=== PATIENT | male | born 1930 | race Caucasian/White ===

== ENCOUNTER 2017-03-15 16:00 | Inpatient (IN) | payer MEDICARE, BC ==
[2017-03-15] MEDS ORDERED: ONDANSETRON 4 MG/2 ML VIAL IVP PRN (16:56)
[2017-03-15] MEDS ORDERED: ACETAMINOPHEN TAB 325 MG TAB PO PRN (16:56)
[2017-03-15] MEDS ORDERED: MORPHINE SULFATE 5 MG/ML SYRINGE IV PRN (16:56)
[2017-03-15] MEDS ORDERED: NALOXONE 0.4 MG/ML 1 ML VIAL IV PRN (16:56)
[2017-03-15] MEDS ORDERED: NITROGLYCERIN SL TABS 0.4 MG TAB SUBLINGUAL PRN (16:58)
[2017-03-15] MEDS ORDERED: ALPRAZolam 0.5 MG TAB PO PRN (16:58)
--- NOTE | 2017-03-15 17:13 | ED ---
General Adult HPI - General Chief complaint: Chest Pain Stated complaint: CHEST PAIN Time Seen by Provider: 03/15/17 16:09 Source: patient, EMS, RN notes reviewed, old records reviewed Mode of arrival: EMS Limitations: no limitations - History of Present Illness Initial comments: 86-year-old male presenting as a transfer from outside emergency Department with chief complaint of chest pain. Patient has history of CAD, status post stenting on 02/13/2017. He has been compliant with his medications. Patient has been chest pain-free throughout EMS transport and while in the emergency department. Denies dyspnea. Denies fever or chills. Denies cough or shortness of breath. Denies abdominal pain nausea vomiting. Patient states his chest pain began approximately one hour prior to initial presentation. He received aspirin, chest pain is resolved. It was dull substernal chest pain. No radiation. No diaphoresis. - Related Data Home Medications Medication Instructions Recorded Confirmed Nitroglycerin Sl Tabs [Nitrostat] 0.4 mg SUBLINGUAL Q5M PRN 12/14/13 03/15/17 Aspirin EC [Ecotrin Low Dose] 81 mg PO DAILY 02/12/17 03/15/17 Isosorbide Mononitrate [Imdur] 30 mg PO DAILY 02/12/17 03/15/17 ALPRAZolam [Xanax] 0.5 mg PO BID PRN 03/15/17 03/15/17 Atorvastatin [Lipitor] 40 mg PO HS 03/15/17 03/15/17 Magic Mouthwash 1 - 2 tsp PO BID PRN 03/15/17 Prasugrel [Effient] 10 mg PO DAILY 03/15/17 03/15/17 amLODIPine [Norvasc] 5 mg PO DAILY 03/15/17 03/15/17 Previous Rx's Medication Instructions Recorded Metoprolol Tartrate [Lopressor] 25 mg PO DAILY #30 tab 02/14/17 Ticagrelor [Brilinta] 90 mg PO BID #60 tab 02/14/17 Allergies Allergy/AdvReac Type Severity Reaction Status Date / Time clopidogrel [From Plavix] Allergy Unknown Verified 03/15/17 16:44 procaine [Procaine] Allergy Rash/Hives Verified 03/15/17 16:44 procaine HCl [From Novocain] Allergy Rash/Hives Verified 03/15/17 16:44 Review of Systems ROS Statement: Those systems with pertinent positive or pertinent negative responses have been documented in the HPI. ROS Other: All systems not noted in ROS Statement are negative. Past Medical History Past Medical History: Coronary Artery Disease (CAD), Chest Pain / Angina, Heart Failure, Hyperlipidemia, Hypertension, Myocardial Infarction ([place]), Osteoarthritis (OA) Additional Past Medical History / Comment(s): CHF, ANGINA, Stents x 4, DJD, antral ulcer Last Myocardial Infarction Date:: 12/14/13 History of Any Multi-Drug Resistant Organisms: None Reported Past Surgical History: Heart Catheterization With Stent, Hernia Repair, Orthopedic Surgery Additional Past Surgical History / Comment(s): STENTS X4, Left hand surgery, jared cataract, EGD Past Anesthesia/Blood Transfusion Reactions: No Reported Reaction Date of Last Stent Placement:: 12/14/2013 Past Psychological History: Anxiety Smoking Status: Former smoker Past Alcohol Use History: None Reported Past Drug Use History: None Reported - Past Family History Mother History Unknown: Yes Father Additional Family Medical History / Comment(s): typhoid fever; otherwise unknown hx of father or mother; father was in concentration camp in [facility]. General Exam Limitations: no limitations General appearance: alert, in no apparent distress Head exam: Present: atraumatic, normocephalic Eye exam: Present: normal appearance, PERRL ENT exam: Present: normal exam Neck exam: Present: normal inspection. Absent: meningismus Respiratory exam: Present: normal lung sounds bilaterally. Absent: respiratory distress, wheezes Cardiovascular Exam: Present: regular rate, normal rhythm GI/Abdominal exam: Present: soft. Absent: distended, tenderness Extremities exam: Present: normal inspection, normal capillary refill. Absent: pedal edema Back exam: Present: normal inspection. Absent: full ROM, tenderness Neurological exam: Present: alert, oriented X3 Psychiatric exam: Present: normal affect, normal mood Skin exam: Present: warm, dry, intact. Absent: cyanosis, diaphoretic Course Vital Signs 03/15/17 16:10 Temperature 98.1 F Pulse Rate 57 L Respiratory 16 Rate Blood Pressure 156/85 O2 Sat by Pulse 98 Oximetry EKG Findings - EKG Comments: EKG Findings:: EKG shows sinus rhythm with first-degree AV block and occasional PVC left axis deviation, rate of 69, AK interval 232, QRS duration 112, QTC 447 , there is T-wave inversion in the inferior leads no ST segment depression or ST segment elevation. Medical Decision Making - Medical Decision Making 86-year-old male with history of CAD presents to emergency department as transfer from outside hospital for evaluation of chest pain. Previous ER physician did discuss the case with cardiology. Patient was given an aspirin, no no heparin at this time. Patient will be placed in observation for serial cardiac enzymes and cardiology consult. Laboratory studies obtained at its outside emergency Department, glucose 95, creatinine 1.3, sodium 140, potassium 4, troponin is negative, white blood cell count 6.1, hemoglobin 13.7. Disposition Clinical Impression: Chest pain Disposition: ADMITTED IP TO THIS HOSP Condition: Stable Referrals: Sundeep Hawley MD [Primary Care Provider] - 1-2 days Decision to Admit Reason: Admit from EC Decision Date: 03/15/17 Decision Time: 17:12
[2017-03-15 18:52] LABS: Creatine Kinase MB 0.6 ng/mL (0.0-2.4); Troponin I 0.03 ng/mL (0.000-0.034)
[2017-03-15] MEDS: ATORVASTATIN 40 MG TAB PO SCH (20:00)
[2017-03-15] MEDS: TICAGRELOR 90 MG TAB PO SCH (20:00)
[2017-03-15] MEDS ORDERED: HEPARIN SODIUM,PORCINE 5,000 UNIT/ML 1 ML VIAL IV PRN (22:29)
[2017-03-15] MEDS ORDERED: HEPARIN SODIUM,PORCINE 5,000 UNIT/ML 1 ML VIAL IV ONE (22:29)
[2017-03-15] MEDS: HEPARIN SOD,PORK IN 0.45% NACL 25,000 UNIT in 0.45% NACL 1 500ML.BAG IV SCH (23:18)
[2017-03-15 23:22] LABS: INR 1.1 (<1.2); Partial Thromboplastin Time 23.9 sec (22.0-30.0); Prothrombin Time 10.4 sec (9.0-12.0)
[2017-03-15 23:30] LABS: Creatine Kinase MB 0.6 ng/mL (0.0-2.4); Troponin I 0.025 ng/mL (0.000-0.034)
[2017-03-15] MEDS ORDERED: HYDROcodone/APAP 5-325MG 1 EACH TAB PO PRN (23:35)
[2017-03-16 05:42] LABS: Basophils % (A) 1 %; Eosinophils # (A) 0.6 k/uL (0-0.7); Eosinophils % (A) 10 %; HGB 14.9 gm/dL (13.0-17.5); Lymphocytes # (A) 0.9 k/uL (1.0-4.8); Lymphocytes % (A) 16 %; MCH 29.2 pg (25.0-35.0); MCHC 32.5 g/dL (31.0-37.0); Mean Platelet Volume 7.2; Monocytes # (A) 0.5 k/uL (0-1.0); Monocytes % (A) 8 %; Neutrophils # (A) 3.4 k/uL (1.3-7.7); Neutrophils % (A) 60 %; Platelet Count 190 k/uL (150-450); RBC 5.11 m/uL (4.30-5.90); RDW 13.4 % (11.5-15.5); WBC 5.6 k/uL (3.8-10.6)
[2017-03-16 05:57] LABS: ALT 31 U/L (21-72); AST 18 U/L (17-59); Albumin 3.2 g/dL (3.5-5.0); Alkaline Phosphatase 111 U/L (38-126); Anion Gap 9 mmol/L; Blood Urea Nitrogen 15 mg/dL (9-20); Calcium 9.1 mg/dL (8.4-10.2); Carbon Dioxide 27 mmol/L (22-30); Chloride 106 mmol/L (98-107); Glucose 94 mg/dL (74-99); Magnesium 2.2 mg/dL (1.6-2.3); Potassium 4.5 mmol/L (3.5-5.1); Sodium 142 mmol/L (137-145); Total Bilirubin 0.7 mg/dL (0.2-1.3); Total Protein 5.8 g/dL (6.3-8.2)
[2017-03-16 06:45] LABS: Basophils # (M) 0.11 k/uL (0-0.2); Eosinophils # (M) 0.45 k/uL (0-0.7); Monocytes # (M) 0.78 k/uL (0-1.0); Neutrophils # (M) 3.36 k/uL (1.3-7.7); Neutrophils % (M) 60 %; Nucleated Red Blood Cells 0 /100 WBC (0-0); Total Cells Counted 100
[2017-03-16] MEDS ORDERED: METOPROLOL TARTRATE 25 MG TAB PO SCH (09:00)
[2017-03-16] MEDS ORDERED: PRASUGREL 10 MG TAB PO SCH (09:00)
--- NOTE | 2017-03-16 09:37 | HP ---
HISTORY AND PHYSICAL DATE OF SERVICE: 03/15/2017 CHIEF COMPLAINT: Chest pain. HISTORY OF PRESENT ILLNESS: This 86-year-old gentleman with a past medical history of multiple medical problems including history of coronary artery disease and CHF, hypertension, hyperlipidemia, history of multiple stents, being followed by Dr. Hawley in the outpatient setting, presented to outside emergency room and subsequently patient was transferred to [facility]. The patient complaining of chest pain she felt in the anterior part of the chest. There is no history of radiation. No association with any aggravating or relieving factors. The pain started about 1 hour prior to the presentation at the primary hospital and the patient admitted for further evaluation and treatment. Patient had features of non ST-segment elevation myocardial infarction recently. Troponin is 0.03 and an EKG done today showed some ST-T changes and PVCs. There is no history of fever, rigors. No history of headache, loss of consciousness, seizures. First degree AV block was noted. PAST MEDICAL HISTORY: History of CAD, stent, history of CHF, hypertension, hyperlipidemia, myocardial infarction, angina. MEDICATIONS: 1. Prior to admission include Imdur 30 mg p.o. daily. 2. Brilinta 90 mg p.o. b.i.d. 3. Nitrostat 0.4 mg p.r.n. 4. Lopressor 25 mg p.o. daily. 5. Ecotrin 81 mg p.o. 6. Norvasc 5 mg p.o. daily. 7. Lipitor 40 mg q.h.s. 8. Xanax 0.5 mg b.i.d. p.r.n. 9. Magic mouthwash. ALLERGIES: PLAVIX, PROCAINE, AND NOVOCAIN. FAMILY HISTORY: History of typhoid fever and apparently the father was in concentration camp in [facility]. SOCIAL HISTORY: Previous history of smoking. No alcohol intake. REVIEW OF SYSTEMS: ENT: Diminished hearing and vision. CARDIOVASCULAR: As mentioned earlier. RESPIRATORY: As mentioned earlier. GI: No nausea. : No dysuria. NERVOUS SYSTEM: No numbness, weakness. ALLERGY/IMMUNOLOGY: No asthma. MUSCULOSKELETAL: As mentioned earlier. HEMATOLOGY: No history of anemia. ENDOCRINE: No history of diabetes, hypothyroidism. CONSTITUTIONAL: As mentioned earlier. DERMATOLOGY: Negative. RHEUMATOLOGY Negative. PSYCHIATRY: As mentioned earlier. PHYSICAL EXAM: Alert, oriented x3. Pulse 85, blood pressure 119/85, respiration 18, temp 97.6, pulse ox 98% room air. HEENT: Conjunctivae normal. Oral mucosa moist. Neck is no jugular venous distention. No carotid bruit. No lymph node enlargement. CARDIOVASCULAR: S1, S2. No S3, no S4. RESPIRATORY: Breath sounds diminished in the bases. A few rhonchi, no crackles. ABDOMEN: Soft, nontender. No mass palpable. LEGS: No edema, no swelling. NERVOUS SYSTEM: Higher functions as mentioned earlier. Moves all four limbs. No focal motor sensory deficits LYMPHATIC: No lymphadenopathy in the neck, axillae, groin. SKIN: No ulcer, rash or bleeding. LAB STUDIES: EKG reviewed. Otherwise is 42. Other labs are noted. ASSESSMENT: 1. Chest pain possible unstable angina rule out myocardial function. 2. History of recent myocardial infarction. 3. History of CAD, multiple stents. 4. Hypertension. 5. Hyperlipidemia. 6. History of degenerative joint disease. 7. History of congestive heart failure. 8. History of antral ulcer. 9. History of cataracts. 10.History of anxiety. RECOMMENDATIONS AND DISCUSSION: In this 86-year-old gentleman who presented with multiple complex medical issues , will monitor the patient closely. Continue the current medications and unstable angina protocol, IV heparin. Repeat troponin. Cardiology consultation. Resume the home medication. Antiplatelet and beta blockers. Will follow the patient closely. Otherwise repeat labs will be ordered. Prognosis guarded because of multiple complex medical issues. Further recommendations to follow. Copy of dictation forwarded to Dr. Hawley who is the primary physician. MMKARENL / STARN: [id number] / [facility]
[2017-03-16 09:57] LABS: Troponin I 0.03 ng/mL (0.000-0.034)
[2017-03-16 10:00] LABS: Creatine Kinase MB 0.9 ng/mL (0.0-2.4)
[2017-03-16 10:13] VITALS: BMI 30.9
--- NOTE | 2017-03-16 12:29 | P.CRDCN ---
History of Present Illness Consult date: 03/16/17 Requesting physician: Lary Wong Consult reason: chest pain Chief complaint: Chest pain History of present illness: This is an 86-year-old gentleman who follows regularly with Dr. Iglesia Man in the office. He has a past medical history significant for coronary artery disease, patient is known to have a total occlusion of the circumflex, he has also underwent multiple interventions of the RCA from 2000 onwards. The most recent intervention was performed in January 2017 at which time patient underwent stenting again of the totally occluded RCA. He should also has known history of hypertension, hyperlipidemia. He states that he has a visiting nurse that comes to the house, he was told by her if his blood pressure ever dropped low that he should go to the hospital. He states he presented to [facility] because of low blood pressure of 116/70. After arrival there he was told that the patient would be transferred to [facility] for further evaluation. Patient states he did not have any overt chest discomfort, but does state that he gets chest discomfort in the left side of his chest off and on, maybe twice or 3 times since his most recent PCI. He does state that he occasionally feels his heart racing fast, overall breathing has been stable. EKG performed at [facility] shows a sinus bradycardia with a first- degree AV block and ST-T wave changes noted in the inferior lateral leads. Subsequent EKG performed on arrival here shows normal sinus rhythm with first- degree AV block cyst and ST-T wave changes in the inferior leads with resolution of changes in the lateral leads. Inferior changes were also noted on prior EKGs in January. He is noted to have occasional PVCs on the monitor, upon review of his rhythm strips, patient was noted to have a 23 run of nonsustained ventricular tachycardia. Echocardiogram with Doppler study performed in January revealed an ejection fraction of 40-45%. Laboratory data at [facility] was reviewed, sodium 140, potassium 4.0, chloride 108, CO2 25. BUN 17, creatinine 1.3. Blood cell count 6.1, hemoglobin 13.7, hematocrit 41, platelet count 170. Initial troponin performed at [facility] was 0.2. White blood cell count here 5.6, hemoglobin 14.9, platelet count 190. Sodium 142, potassium 4.5, BUN 15, creatinine 1.2. Magnesium 2.2. Troponins 0.030, 0.025, 0.030. The time of my examination this morning, patient denies having any chest or, breathing is stable, denies any palpitations. Past Medical History Past Medical History: Coronary Artery Disease (CAD), Chest Pain / Angina, Heart Failure, Hyperlipidemia, Hypertension, Myocardial Infarction ([place]), Osteoarthritis (OA) Additional Past Medical History / Comment(s): CHF, ANGINA, Stents x 4, DJD, antral ulcer Last Myocardial Infarction Date:: 12/14/13 History of Any Multi-Drug Resistant Organisms: None Reported Past Surgical History: Heart Catheterization With Stent, Hernia Repair, Orthopedic Surgery Additional Past Surgical History / Comment(s): STENTS X4, Left hand surgery, jared cataract, EGD Past Anesthesia/Blood Transfusion Reactions: No Reported Reaction Date of Last Stent Placement:: 12/14/2013 Smoking Status: Former smoker - Past Family History Mother History Unknown: Yes Father Additional Family Medical History / Comment(s): typhoid fever; otherwise unknown hx of father or mother; father was in concentration camp in [facility]. Medications and Allergies Home Medications Medication Instructions Recorded Confirmed Type Nitroglycerin Sl Tabs [Nitrostat] 0.4 mg SUBLINGUAL Q5M PRN 12/14/13 03/15/17 History Aspirin EC [Ecotrin Low Dose] 81 mg PO DAILY 02/12/17 03/15/17 History Isosorbide Mononitrate [Imdur] 30 mg PO DAILY 02/12/17 03/15/17 History Metoprolol Tartrate [Lopressor] 25 mg PO DAILY #30 tab 02/14/17 03/15/17 Rx Ticagrelor [Brilinta] 90 mg PO BID #60 tab 02/14/17 03/15/17 Rx ALPRAZolam [Xanax] 0.5 mg PO BID PRN 03/15/17 03/15/17 History Atorvastatin [Lipitor] 40 mg PO HS 03/15/17 03/15/17 History Magic Mouthwash 1 - 2 tsp PO BID PRN 03/15/17 History amLODIPine [Norvasc] 5 mg PO DAILY 03/15/17 03/15/17 History Allergies Allergy/AdvReac Type Severity Reaction Status Date / Time clopidogrel [From Plavix] Allergy Unknown Verified 03/15/17 16:44 procaine [Procaine] Allergy Rash/Hives Verified 03/15/17 16:44 procaine HCl [From Novocain] Allergy Rash/Hives Verified 03/15/17 16:44 Physical Exam Vitals: Vital Signs Temp Pulse Pulse Pulse Resp BP BP 03/16/17 08:00 97.5 F L 70 16 121/68 03/16/17 03:37 18 03/16/17 03:36 97.6 F 68 18 171/75 03/15/17 23:52 18 03/15/17 23:28 97.6 F 85 18 195/85 03/15/17 20:00 97.5 F L 73 16 166/73 03/15/17 18:15 97.6 F 89 18 158/72 03/15/17 17:53 69 16 154/72 03/15/17 17:09 66 16 146/66 03/15/17 16:10 98.1 F 57 L 16 156/85 Pulse Ox 03/16/17 08:00 95 03/16/17 03:37 03/16/17 03:36 97 03/15/17 23:52 03/15/17 23:28 92 L 03/15/17 20:00 96 03/15/17 18:15 96 03/15/17 17:53 97 03/15/17 17:09 99 03/15/17 16:10 98 Intake and Output 03/15/17 03/16/17 03/16/17 22:59 06:59 14:59 Intake Total 240 145.028 Balance 240 145.028 Intake: Intake, IV Titration 145.028 Amount Heparin Sod,Pork in 0.45% 145.028 NaCl 25,000 unit In 0.45 % NaCl 1 500ml.bag @ 11. 55 UNITS/KG/HR 20.05 mls/ hr IV .Q24H [facility] Rx#: [id number] Oral 240 Other: Voiding Method Toilet # Voids 1 Weight 86.8 kg 86.8 kg Patient Weight 03/17/17 06:59 Weight 86.8 kg PHYSICAL EXAMINATION: HEENT: Head is atraumatic, normocephalic. Pupils equal, round. Neck is supple. There is no elevated jugular venous pressure. HEART EXAMINATION: Heart S1, S2 systolic ejection murmur heard . No murmur or gallop heard. CHEST EXAMINATION: Lungs are clear to auscultation and precussion. No chest wall tenderness is noted on palpation or with deep breathing. ABDOMEN: Soft, nontender. Bowel sounds are heard. No organomegaly noted. EXTREMITIES: 2+ peripheral pulses with no evidence of peripheral edema and no calf tenderness noted. NEUROLOGIC patient is awake, alert and oriented -3. . Results 03/16/17 05:22 03/16/17 05:22 Cardiac Enzymes 03/15/17 03/15/17 03/16/17 Range/Units 18:02 22:43 05:22 AST 18 (17-59) U/L CK-MB (CK-2) 0.6 0.6 (0.0-2.4) ng/mL Troponin I 0.030 0.025 (0.000-0.034) ng/mL 03/16/17 Range/Units 05:22 AST (17-59) U/L CK-MB (CK-2) 0.9 (0.0-2.4) ng/mL Troponin I 0.030 (0.000-0.034) ng/mL Coagulation 03/15/17 03/16/17 Range/Units 22:43 05:22 PT 10.4 (9.0-12.0) sec APTT 23.9 43.1 H (22.0-30.0) sec CBC 03/16/17 Range/Units 05:22 WBC 5.6 (3.8-10.6) k/uL RBC 5.11 (4.30-5.90) m/uL Hgb 14.9 (13.0-17.5) gm/dL Hct 46.0 (39.0-53.0) % Plt Count 190 (150-450) k/uL Comprehensive Metabolic Panel 03/16/17 Range/Units 05:22 Sodium 142 (137-145) mmol/L Potassium 4.5 (3.5-5.1) mmol/L Chloride 106 (98-107) mmol/L Carbon Dioxide 27 (22-30) mmol/L BUN 15 (9-20) mg/dL Creatinine 1.20 (0.66-1.25) mg/dL Glucose 94 (74-99) mg/dL Calcium 9.1 (8.4-10.2) mg/dL AST 18 (17-59) U/L ALT 31 (21-72) U/L Alkaline Phosphatase 111 (38-126) U/L Total Protein 5.8 L (6.3-8.2) g/dL Albumin 3.2 L (3.5-5.0) g/dL Current Medications Generic Name Dose Route Start Last Admin Trade Name Freq PRN Reason Stop Dose Admin Acetaminophen 650 mg 03/15/17 16:56 Tylenol Tab PO Q6HR PRN Mild Pain or Fever > 100.5 Hydrocodone Bitart/Acetaminophen 1 each 03/15/17 23:35 [place] 5-325 PO Q6HR PRN Pain Alprazolam 0.5 mg 03/15/17 16:58 03/15/17 23:29 Xanax PO 0.5 mg BID PRN Administration Anxiety Amlodipine Besylate 5 mg 03/16/17 09:00 Norvasc PO DAILY [facility] Aspirin 81 mg 03/16/17 09:00 Aspirin PO DAILY [facility] Atorvastatin Calcium 40 mg 03/15/17 21:00 03/15/17 20:00 Lipitor PO 40 mg HS [facility] Administration Heparin Sodium (Porcine) 0 unit 03/15/17 22:29 Heparin IV PER PROTOCOL PRN Low PTT Protocol Heparin Sodium/Sodium Chloride 500 mls @ 20.05 mls/hr 03/15/17 22:30 06:32 25,000 unit/ Sodium Chloride IV 13.55 units/kg/hr .Q24H [facility] 23.52 mls/hr Protocol Titration 11.55 UNITS/KG/HR Isosorbide Mononitrate 30 mg 03/16/17 09:00 Imdur PO DAILY [facility] Melatonin 3 mg 03/16/17 21:00 Melatonin PO HS [facility] Metoprolol Tartrate 25 mg 03/16/17 09:00 Lopressor PO DAILY [facility] Morphine Sulfate 4 mg 03/15/17 16:56 Morphine Sulfate IV Q4HR PRN Severe Pain Naloxone HCl 0.2 mg 03/15/17 16:56 Narcan IV Q2M PRN Opioid Reversal Nitroglycerin 0.4 mg 03/15/17 16:58 Nitrostat SUBLINGUAL Q5M PRN Chest Pain Ondansetron HCl 4 mg 03/15/17 16:56 Zofran IVP Q8HR PRN Nausea And Vomiting Ticagrelor 90 mg 03/15/17 21:00 03/15/17 20:00 Brilinta PO 90 mg BID АНДРЕЙ Administration Intake and Output 03/15/17 03/16/17 03/16/17 22:59 06:59 14:59 Intake Total 240 145.028 Balance 240 145.028 Intake: Intake, IV Titration 145.028 Amount Heparin Sod,Pork in 0.45% 145.028 NaCl 25,000 unit In 0.45 % NaCl 1 500ml.bag @ 11. 55 UNITS/KG/HR 20.05 mls/ hr IV .Q24H [facility] Rx#: [id number] Oral 240 Other: Voiding Method Toilet # Voids 1 Weight 86.8 kg 86.8 kg Patient Weight 03/17/17 06:59 Weight 86.8 kg 03/16/17 05:22 03/16/17 05:22 EKG Interpretations (text) EKG shows normal sinus rhythm with ST-T wave changes in the inferior lateral leads. Assessment and Plan Plan: Assessment and Plan #1 intermittent chest discomfort, patient actually states that he did not have any chest discomfort prior to presenting [facility], he states he went to the hospital because he thought his blood pressure of 116/70 was too low. Troponins 0.030, 0.025, 0.030. EKG shows normal sinus rhythm with inferior ST-T wave changes similar to prior. #2 known history of coronary artery disease with known totally occluded circumflex and multiple stent placements to the right coronary artery, most recently in January 2017 #3 hypertension #4 hyperlipidemia #5 run of nonsustained ventricular tachycardia, potassium and magnesium level within normal limits. Plan We will request an echocardiogram with Doppler study be performed. Echo that the patient had performed in January revealed an ejection fraction of 40-45%. Continue aspirin 81 mg daily, Lipitor 40 mg daily, IV heparin, Imdur 30 mg daily , we will increase metoprolol to 25 mg one tablet by mouth twice a day. Continue Brilinta 90 mg twice a day. Further recommendations to follow. DNP note has been reviewed, I agree with a documented findings and plan of care. Patient was seen and examined.
[2017-03-16] MEDS: TICAGRELOR 90 MG TAB PO SCH ×2 (13:16→20:08)
[2017-03-16] MEDS: amLODIPine 5 MG TAB PO SCH (13:16)
[2017-03-16] MEDS: ISOSORBIDE MONONITRATE ER 30 MG TAB.ER.24H PO SCH (13:16)
[2017-03-16] MEDS: METOPROLOL TARTRATE 25 MG TAB PO SCH ×2 (13:17→20:08)
[2017-03-16] MEDS: ASPIRIN 81 MG PO SCH (13:18)
--- NOTE | 2017-03-16 18:25 | PN ---
PROGRESS NOTE DATE OF SERVICE: 03/16/2017 This is an 86-year-old gentleman admitted with chest pain, possible unstable angina, also had 23 runs of V. tach. No chest pain. No palpitations. No fever. Cardiology is following the patient closely. PHYSICAL EXAM: Alert and oriented x3. Pulse is 68. blood pressure 130/60, respiration 18, temperature 97.4, pulse ox 97% on room air. HEENT: Conjunctivae normal. NECK: No jugular venous distension. CARDIOVASCULAR: S1, S2. RESPIRATORY: Breath sounds diminished at the bases, no rhonchi, no crackles. Abdomen is soft, nontender. LEGS: No edema, no swelling NERVOUS SYSTEM: No focal deficits. LABS: CBC within normal limits and albumin is 3.2. TSH is 2.840. Troponins are noted. ASSESSMENT: 1. Chest pain, possible unstable angina. 2. Nonsustained ventricular tachycardia. 3. History of recent myocardial infarction. 4. History of coronary artery disease, multiple stents. 5. Hypertension. 6. Hyperlipidemia. 7. History of degenerative joint disease. 8. History of congestive heart failure. 9. History of antral ulcer. 10.History of cataracts. 11.History of anxiety. RECOMMENDATION: Continue current management. Continue with the medical treatment. Closely follow with Cardiology. Prognosis guarded because of multiple complex medical issues. Monitor lytes closely. Further recommendations to follow. MMODL / IJN: [id number] /
[2017-03-16] MEDS: MELATONIN 3 MG TABLET PO SCH (20:08)
[2017-03-16] MEDS: ATORVASTATIN 40 MG TAB PO SCH (20:08)
[2017-03-16] MEDS: HEPARIN SOD,PORK IN 0.45% NACL 25,000 UNIT in 0.45% NACL 1 500ML.BAG IV SCH (23:08)
[2017-03-17] MEDS: amLODIPine 5 MG TAB PO SCH (09:37)
[2017-03-17] MEDS: METOPROLOL TARTRATE 25 MG TAB PO SCH ×2 (09:37→21:34)
[2017-03-17] MEDS: TICAGRELOR 90 MG TAB PO SCH ×2 (09:37→21:34)
[2017-03-17] MEDS: ISOSORBIDE MONONITRATE ER 30 MG TAB.ER.24H PO SCH (09:37)
[2017-03-17] MEDS: ASPIRIN 81 MG PO SCH (09:37)
[2017-03-17] MEDS ORDERED: MORPHINE SULFATE 2 MG/ML SYRINGE IV PRN (13:53)
[2017-03-17] MEDS: MELATONIN 3 MG TABLET PO SCH (21:34)
[2017-03-17] MEDS: ATORVASTATIN 40 MG TAB PO SCH (21:34)
[2017-03-18] MEDS ORDERED: AMINOPHYLLINE 500 MG/20 ML VIAL IV PRN (06:00)
[2017-03-18] MEDS ORDERED: REGADENOSON 0.4 MG/5 ML SYRINGE IV ONE (06:00)
[2017-03-18 07:34] LABS: Anion Gap 9 mmol/L; Blood Urea Nitrogen 18 mg/dL (9-20); Calcium 9.4 mg/dL (8.4-10.2); Carbon Dioxide 27 mmol/L (22-30); Chloride 107 mmol/L (98-107); Glucose 108 mg/dL (74-99); Potassium 5.2 mmol/L (3.5-5.1); Sodium 143 mmol/L (137-145)
[2017-03-18 08:04] VITALS: RESP 16
--- NOTE | 2017-03-18 11:20 | NM ---
EXAMINATION TYPE: NM stress lexiscan cardiolite DATE OF EXAM: 03/18/2017 COMPARISON: NONE HISTORY: Precordial chest pain and abnormal EKG. TECHNIQUE: After the intravenous administration of 10.9 mCi Tc 99m Sestamibi - Cardiolite resting SP ECT images acquired 50 minutes post injection. The patient received 0.4mg Lexiscan, 28.1 mCi Tc 99m Sestamibi - Stress images obtained [address] injection FINDINGS: Review of stress and rest SPECT images demonstrates fixed decreased perfusion inferior wall, inferoap ical and inferolateral and lateral andrade felt to reflect remote insult. No evidence for stress-induc ed ischemia at this time. Gated analysis shows hypokinesia inferior wall with an estimated left ventr icular ejection fraction of 44 %. IMPRESSION: No scintigraphic evidence for reversible ischemia.
[2017-03-18] MEDS: ISOSORBIDE MONONITRATE ER 30 MG TAB.ER.24H PO SCH (11:30)
[2017-03-18] MEDS: TICAGRELOR 90 MG TAB PO SCH (11:30)
[2017-03-18] MEDS: amLODIPine 5 MG TAB PO SCH (11:30)
[2017-03-18] MEDS: ASPIRIN 81 MG PO SCH (11:31)
--- NOTE | 2017-03-18 11:34 | EST ---
EXERCISE STRESS DATE OF SERVICE: 03/18/2017 AGE: 86 SEX: Male. HT: 66" WT: 191 pounds PROTOCOL: Lexiscan Cardiolite STAGE: DURATION OF EXERCISE: HEART RATE REST: 71 BLOOD PRESSURE REST: 139/65 MAXIMUM HEART RATE ACHIEVED: 90 MAXIMUM BLOOD PRESSURE: 151/60 85% MPHR: 113 100% MPHR: 133 METS: INDICATIONS: Chest pain. CLINICAL INFORMATION: STRESS DATA: Pretesting physical examination showed a heart rate of 71, pressure is 139/65 mmHg. Baseline EKG showed sinus rhythm. The patient was given 0.4 mg of Lexiscan over 15 seconds per protocol. Max heart rate was 90 beats per minute and maximum pressure was 151/60 mmHg. Clinically the patient did not have any symptoms of chest pain and the EKG did not show any significant changes compared to the baseline. CONCLUSION: 1. Nondiagnostic electrocardiogram stress testing in response to Lexiscan. 2. Please follow up on the Cardiolite portion on a separate report from radiology department. MMODL / IJN: [id number] /
[2017-03-18 11:40] VITALS: BP 137/68; PULSE 52; TEMP 98.1
[2017-03-18] MEDS: METOPROLOL TARTRATE 25 MG TAB PO SCH (12:39)
--- NOTE | 2017-03-18 13:03 | P.PN ---
Subjective Progress Note Date: 03/18/17 Mr. Dhaliwal is an 86-year-old male past medical history significant for coronary artery disease. He is known to have a total occlusion of the circumflex and he most recently underwent PCI of RCA. He follows with Dr. TUCKER Man in the office. He also has a history of hypertension and dyslipidemia. He was being seen today in follow-up for an initial consultation for symptoms of chest discomfort. The chest discomfort was on the left side of his chest off and on baby 23 times since his most recent PCI January. Initial EKG performed at [facility] revealed sinus bradycardia with first-degree AV block and ST to T-wave changes noted in the inferior lateral leads. Subsequent EKG performed on arrival here's shows normal sinus rhythm with first- degree AV block and resolution of the changes in the lateral leads with ongoing inferior changes. He was noted to have a 23 beat run of nonsustained ventricular tachycardia upon admission as well. Echocardiogram and Doppler study performed in January revealed ejection fraction of 40-45%. He has been scheduled for a Lexiscan stress test to rule out progression of coronary artery disease. He denies any further episodes of chest discomfort since admission area and he states his breathing is stable and he has no complaints at this time. Upon admission his metoprolol was increased to 25 mg twice a day secondary to nonsustained VT. However last night he had a 4 second pause noted on telemetry. He was asymptomatic during this time. Potassium this morning 5.2 , creatinine 1.27. Objective - Vital Signs Vital signs: Vital Signs Temp 98.1 F 03/18/17 11:39 Pulse 52 L 03/18/17 11:39 Resp 16 03/18/17 11:39 BP 137/68 03/18/17 11:39 Pulse Ox 98 03/18/17 11:39 Intake & Output 03/17/17 03/18/17 03/18/17 18:59 06:59 18:59 Intake Total 236 Balance 236 Intake: Oral 236 Other: Voiding Method Toilet Toilet Toilet - Exam Blood pressure 137/68 heart rate 52 GENERAL: Well-appearing, well-nourished and in no acute distress. NECK: Supple without JVD or thyromegaly. LUNGS: Faint expiratory wheeze. Respiration equal and unlabored. No rales or rhonchi. HEART: Regular rate and rhythm with systolic ejection murmur, no rubs or gallops. S1 and S2 heard. EXTREMITIES: Normal range of motion, no edema. No clubbing or cyanosis. Peripheral pulses intact and strong. - Labs CBC & Chem 7: 03/16/17 05:22 03/18/17 06:46 Labs: Abnormal Lab Results - Last 24 Hours (Table) 03/18/17 Range/Units 06:46 Potassium 5.2 H (3.5-5.1) mmol/L Creatinine 1.27 H (0.66-1.25) mg/dL Glucose 108 H (74-99) mg/dL Assessment and Plan Assessment: ASSESSMENT 1. Chest pain, atypical 2. Known history of coronary artery disease with chronic total occlusion of circumflex and multiple stent placements to the right coronary artery most recent January 2017 3. Nonsustained ventricular tachycardia 4. Hypertension 5. Dyslipidemia PLAN Decrease beta aftab to to 25 mg daily instead of BID dosing. Lexiscan stress test completed reveals no evidence of reversible cardiac ischemia. Apply event monitor to evaluate for ongoing arrhythmia. Follow-up with Dr. Man in 2 weeks. Nurse Practitioner note has been reviewed, I agree with a documented findings and plan of care. Patient was seen and examined.
--- NOTE | 2017-03-18 14:27 | ECHOF ---
Referral Reason:chest pain MEASUREMENTS -------- HEIGHT: 167.6 cm WEIGHT: 86.6 kg BP: 149/75 IVSd: 1.5 cm (0.6 - 1.1) LVIDd: 4.4 cm (3.9 - 5.3) LVPWd: 1.0 cm (0.6 - 1.1) IVSs: 1.9 cm LVIDs: 3.3 cm LVPWs: 1.6 cm LAESV Index (A-L): 27.46 ml/m Ao Diam: 3.6 cm (2.0 - 3.7) LA Diam: 4.1 cm (2.7 - 3.8) AV Cusp: 0.8 cm (1.5 - 2.6) MV E Silvestre: 0.47 m/s MV DecT: 348 ms MV A Silvestre: 1.04 m/s MV E/A Ratio: 0.45 RAP: 5.00 mmHg RVSP: 11.43 mmHg FINDINGS -------- Sinus rhythm. This was a technically adequate study. The left ventricular size is normal. There is mild concentric left ventricular hypertrophy. Overa ll left ventricular systolic function is moderately impaired with, an EF between 35 - 40 %. Basal i nferior LV wall motion is hypokinetic. Basal inferoseptal LV wall motion is hypokinetic. Basal anteroseptal LV wall motion is hypokinetic. Mid inferior LV wall motion is hypokinetic. Mid inf eroseptal LV wall motion is hypokinetic. Mid anteroseptal LV wall motion is hypokinetic. The right ventricle is normal in size and function. Normal LA size by volume 22+/-6 ml/m2. The right atrium is normal in size. There is moderate aortic valve sclerosis. There is no evidence of aortic regurgitation. There is no evidence of aortic stenosis. The mitral valve leaflets are mildly thickened. Mild mitral regurgitation is present. Trace tricuspid regurgitation present. Right ventricular systolic pressure is normal at < 35 mmHg. There is no evidence of pulmonary hypertension. Trace/mild (physiologic) pulmonic regurgitation. The aortic root size is normal. Normal inferior vena cava with normal inspiratory collapse consistent with estimated right atrial pre ssure of 5 mmHg. The pericardium is normal. There is no pericardial effusion. CONCLUSIONS -------- 1. Sinus rhythm. 2. This was a technically adequate study. 3. The left ventricular size is normal. 4. There is mild concentric left ventricular hypertrophy. 5. Overall left ventricular systolic function is moderately impaired with, an EF between 35 - 40 %. 6. Basal inferior LV wall motion is hypokinetic. 7. Basal inferoseptal LV wall motion is hypokinetic. 8. Basal anteroseptal LV wall motion is hypokinetic. 9. Mid inferior LV wall motion is hypokinetic. 10. Mid inferoseptal LV wall motion is hypokinetic. 11. Mid anteroseptal LV wall motion is hypokinetic. 12. Normal LA size by volume 22+/-6 ml/m2. 13. There is moderate aortic valve sclerosis. 14. The mitral valve leaflets are mildly thickened. 15. Mild mitral regurgitation is present. 16. Trace tricuspid regurgitation present. 17. Right ventricular systolic pressure is normal at < 35 mmHg. 18. There is no evidence of pulmonary hypertension. 19. Trace/mild (physiologic) pulmonic regurgitation. 20. The aortic root size is normal. 21. There is no pericardial effusion. [employer] TECHNICIAN: Antoine Holder RDCS
--- NOTE | 2017-03-18 16:49 | PN ---
PROGRESS NOTE DATE OF SERVICE: 03/17/2017 This 86-year-old gentleman admitted with chest pain, had also nonsustained ventricular tachycardia. No fever. No cough. The patient is awaiting stress test in the morning. EXAM: Alert and oriented times two. Pulse is 52, blood pressure 130/60, respirations 16, temp is 98.2, pulse ox 98% room air. HEENT: Conjunctivae normal. Neck: No jugular venous distention. Cardiovascular: S1, S2 muffled. Respiration: Breath sounds diminished in the bases. No rhonchi. No crackles. Abdomen is soft, nontender. LEGS: No edema. No swelling. Central nervous system: No focal deficits. LABS: Reviewed APTT noted. Otherwise, albumin 3.2. FINAL DIAGNOSES: 1. Chest pain possible unstable angina. 2. Nonsustained ventricular tachycardia. 3. History of recent myocardial infarction. 4. History of coronary artery disease, multiple stents. 5. Hypertension. 6. History of hyperlipidemia. 7. History of degenerative joint disease. 8. History of congestive heart failure. 9. History of antral ulcer. 10.History of cataracts. 11.History of anxiety. RECOMMENDATIONS AND DISCUSSION: Recommend to continue current medications, management. Symptomatic treatment. Otherwise, at this time, I recommend continue the current medications, continue with beta blockers and possible stress test per Cardiology. Guarded prognosis. Further recommendations to follow. MMODL / IJN: [id number] /
[2017-03-19] MEDS ORDERED: METOPROLOL SUCCINATE (ER) 25 MG TAB.ER.24H PO SCH (09:00)
[2017-03-19] MEDS ORDERED: METOPROLOL TARTRATE 25 MG TAB PO SCH (09:00)
--- NOTE | 2017-03-19 09:16 | DS ---
DISCHARGE SUMMARY FINAL DIAGNOSES: 1. Chest pain possible unstable angina. 2. Status post stress test showing fixed defect. 3. Nonsustained ventricular tachycardia. 4. History of recent myocardial infarction. 5. History of coronary artery disease, multiple stents. 6. Hypertension. 7. Hyperlipidemia. 8. History of degenerative joint disease. 9. History of congestive heart failure. 11.History of cataracts. 12.History of anxiety. DISCHARGE DISPOSITION: The patient is being discharged in stable condition with guarded prognosis. HISTORY OF PRESENT ILLNESS: This 86-year-old gentleman with a past medical history of multiple medical problems, admitted with chest pain. Myocardial infarction ruled out. Stress test showed fixed defect. The patient also had multiple runs of ventricular tachycardia and metoprolol single dose was used at this time. The patient improved significantly. Patient being discharged in stable condition with guarded prognosis. Cardiology discussed the case at length with the family. Please refer to Cardiology notes for further information. On exam, vitals are stable. Cardiovascular: S1, S2 is normal. Abdomen is soft. Nervous system: No focal deficits. DISCHARGE ADVICE AND MEDICATIONS: 1. Discharge diet is cardiac. 2. Activity limited until follow up. 3. Follow up with Dr. Hawley in 1-2 days. 4. Follow up with cardiology as advised. MEDICATIONS ARE: 1. Tylenol 650 q.6h p.r.n. 2. Xanax 0.5 p.o. b.i.d. 3. Norvasc 5 mg p.o. daily. 4. Aspirin 81 mg p.o. daily. 5. Lipitor 40 mg q.h.s. 6. Imdur 30 mg p.o. daily. 7. Metoprolol 25 mg p.o. daily. 8. Nitro 0.4 mg sublingual p.r.n. 9. Brilinta 90 mg p.o. b.i.d. MMODL / IJN: [id number] / MTDD
--- NOTE | 2017-03-28 10:56 | EM ---
EVENT MONITOR DATE OF SERVICE: 03/17/2017 INDICATION OF THE STUDY: Palpitation. The baseline rhythm appeared to be sinus mechanism. The patient did experience multiple episodes of ventricular ectopies in the term of premature ventricular contraction as well as short runs of nonsustained VT with wide-complex tachycardia of the longest of 15 beats. Beside that, the patient did experience multiple episodes of ventricular bigeminy and ventricular couplets. Beside that, there was also multiple episodes of single PVCs. No evidence of any supraventricular ectopy is noted. No evidence of any advanced AV block noted. No evidence of any sinus pause or sinus arrest. CONCLUSION: 1. Sinus rhythm as a baseline mechanism. 2. Rare supraventricular ectopic events noted. 3. Frequent ventricular ectopic events noted in the term of PVC, couplets, and nonsustained ventricular tachycardia. 4. No evidence of any advanced AV block. 5. There is no evidence of sinus pause or sinus arrest. MMODL / IJN: [id number] /
== END 2017-03-18 14:17 | disposition home or self-care (01) | DRG 303 ==
LOC: EC 16:00 → 3OBS 16:56 → OBSVTOIN 03-17 13:38
PROVIDERS: ADMIT Hospitalist; ATTEND Hospitalist
DX: I25.110 Atherosclerotic heart disease of native coronary artery with unstable angina pectoris (principal); I47.2 Ventricular tachycardia; I50.9 Heart failure, unspecified; I11.0 Hypertensive heart disease with heart failure; E78.5 Hyperlipidemia, unspecified; F41.9 Anxiety disorder, unspecified; I44.0 Atrioventricular block, first degree; I25.2 Old myocardial infarction; Z79.899 Other long term (current) drug therapy; Z87.11 Personal history of peptic ulcer disease; Z87.891 Personal history of nicotine dependence; Z95.5 Presence of coronary angioplasty implant and graft; Z79.82 Long term (current) use of aspirin; Z88.4 Allergy status to anesthetic agent; Z88.8 Allergy status to other drugs, medicaments and biological substances
CPT/HCPCS: 78452; 80048; 80053; 82550; 82553; 83735; 84443; 84484; 85025; 85610; 85730; 93005; 93017; 93270; 93271; 93306; 99285

== ENCOUNTER 2018-09-03 13:24 | Inpatient (IN) | payer MEDICARE, BC ==
--- NOTE | 2018-09-03 13:47 | ED ---
General Adult HPI - General Chief complaint: Arrhythmia/Palpitations Stated complaint: AFib Time Seen by Provider: 09/03/18 13:25 Source: patient, EMS, RN notes reviewed Mode of arrival: ambulatory Limitations: no limitations - History of Present Illness Initial comments: This is an 87-year-old male who presents emergency department with past medical history significant for coronary artery disease and multiple stent placements. Patient was having chest pain he showed up to [place] and he was found to be in atrial fibrillation which was new for him and his chest pain eventually resolved but because of the new onset A. fib and the chest pain he was transferred to our facility. 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 Patient denies any chest pain currently. Patient denies any shortness of breath currently. Patient denies any recent fever chills or cough. Patient states currently he is asymptomatic. Patient does not know his heart beating irregularly. - Related Data Home Medications Medication Instructions Recorded Confirmed Nitroglycerin Sl Tabs [Nitrostat] 0.4 mg SUBLINGUAL Q5M PRN 12/14/13 09/03/18 Aspirin EC [Ecotrin Low Dose] 81 mg PO DAILY 02/12/17 09/03/18 Isosorbide Mononitrate [Imdur] 30 mg PO DAILY 02/12/17 09/03/18 Atorvastatin [Lipitor] 40 mg PO HS 03/15/17 09/03/18 Gabapentin [Neurontin] 100 mg PO TID 09/03/18 09/03/18 LORazepam [Ativan] 1 mg PO BID 09/03/18 09/03/18 Previous Rx's Medication Instructions Recorded Metoprolol Tartrate [Lopressor] 25 mg PO DAILY #30 tab 02/14/17 Allergies Allergy/AdvReac Type Severity Reaction Status Date / Time clopidogrel [From Plavix] Allergy Unknown Verified 09/03/18 14:39 procaine [Procaine] Allergy Rash/Hives Verified 09/03/18 14:39 procaine HCl [From Novocain] Allergy Rash/Hives Verified 09/03/18 14:39 Review of Systems ROS Statement: Those systems with pertinent positive or pertinent negative responses have been documented in the HPI. ROS Other: All systems not noted in ROS Statement are negative. Past Medical History Past Medical History: Atrial Fibrillation, Coronary Artery Disease (CAD), Chest Pain / Angina, Heart Failure, Hyperlipidemia, Hypertension, Myocardial Infarction (ND), Osteoarthritis (OA) Additional Past Medical History / Comment(s): CHF, ANGINA, Stents x 4, DJD, antral ulcer Last Myocardial Infarction Date:: 12/14/13 History of Any Multi-Drug Resistant Organisms: None Reported Past Surgical History: Heart Catheterization With Stent, Hernia Repair, Orthopedic Surgery Additional Past Surgical History / Comment(s): STENTS X4, Left hand surgery, jared cataract, EGD Past Anesthesia/Blood Transfusion Reactions: No Reported Reaction Date of Last Stent Placement:: 12/14/2013 Past Psychological History: Anxiety Smoking Status: Former smoker Past Alcohol Use History: None Reported Past Drug Use History: None Reported - Past Family History Mother History Unknown: Yes Father Additional Family Medical History / Comment(s): typhoid fever; otherwise unknown hx of father or mother; father was in concentration camp in [facility]. General Exam - General Exam Comments Initial Comments: GENERAL: Patient is well-developed and well-nourished. Patient is nontoxic and well- hydrated and is in no acute distress ENT: Neck is soft and supple. No significant lymphadenopathy is noted. Oropharynx is clear. Moist mucous membranes. Neck has full range of motion without eliciting any pain. EYES: The sclera were anicteric and conjunctiva were pink and moist. Extraocular movements were intact and pupils were equal round and reactive to light. Eyelids were unremarkable. PULMONARY: Unlabored respirations. Good breath sounds bilaterally. No audible rales rhonchi or wheezing was noted. CARDIOVASCULAR: Patient's heart rate is irregular ABDOMEN: Soft and nontender with normal bowel sounds. SKIN: Skin is clear with no lesions or rashes and otherwise unremarkable. NEUROLOGIC: Patient is alert and oriented x3. Cranial nerves II through XII are grossly intact. Motor and sensory are also intact. Normal speech, volume and content. Symmetrical smile. MUSCULOSKELETAL: Normal extremities with adequate strength and full range of motion. LYMPHATICS: No significant lymphadenopathy is noted PSYCHIATRIC: Normal psychiatric evaluation. Limitations: no limitations Course Vital Signs 09/03/18 09/03/18 13:26 14:01 Temperature 96.9 F L Pulse Rate 46 L 50 L Respiratory 18 18 Rate Blood Pressure 113/63 109/49 O2 Sat by Pulse 97 98 Oximetry Medical Decision Making - Medical Decision Making EKG shows atrial fibrillation with occasional PVC at 57 bpm QRS is 118 QT interval is 480 QTC is 467. Patient's EKG shows no ST segment elevation or depression. Repeat troponin was normal. I spoke with Dr. Mari she agreed to admit the patient admitted the patient wrote admitting orders. - Lab Data Lab Results 09/03/18 Range/Units 13:53 Troponin I 0.028 (0.000-0.034) ng/mL Disposition Clinical Impression: New onset a-fib, Chest pain Disposition: ADMITTED IP TO THIS HOSP Referrals: Sundeep Hawley MD [Primary Care Provider] - 1-2 days Time of Disposition: 15:06
[2018-09-03] MEDS ORDERED: NITROGLYCERIN SL TABS 0.4 MG TAB SUBLINGUAL PRN (15:07)
--- NOTE | 2018-09-03 15:35 | P.HPIM ---
History of Present Illness H&P Date: 09/03/18 Chief Complaint: Chest pain transferred from [facility] The patient is a 79-year-old male with a past medical history of coronary artery disease, essential hypertension, hyperlipidemia, systolic CHF with last known ejection fraction of 40-45% who was transferred here from [facility]. Apparently the patient presented there with chest pain that began late last evening. The patient reports intermittent midsternal sharp nonradiating severe chest pain that would last approximately 2 minutes then recur sporadically since last night, he reports some shortness of breath, and reports that productive cough for the last 2 days, he denies any subjective fevers chills or night sweats. He denies any excessive diaphoresis, denies nausea and vomiting. He reports intermittent episodes of lightheadedness but has not felt like use going to pass out. He denies any lower extremity swelling, the patient's daughter Joyce ANDREWS reports that the patient's heart rate was extremely slow at [place] down into the high 20s. Review of records indicates the patient's heart rate was as low as mid 40s per documentation sent here to the ER from [place]. In the ER the patient had a comprehensive workup, EKG was with atrial fibrillation with slow ventricular response. Serum sodium was 143, serum potassium 5.7, creatinine 1.27. This is recommended for admission for new onset A. fib the patient apparently follows with Dr. Man as his primary counselor camp. Review of Systems Pertinent positives per HPI all other review of systems otherwise negative Past Medical History Past Medical History: Atrial Fibrillation, Coronary Artery Disease (CAD), Chest Pain / Angina, Heart Failure, Hyperlipidemia, Hypertension, Myocardial Infarction ([place]), Osteoarthritis (OA) Additional Past Medical History / Comment(s): CHF, ANGINA, Stents x 4, DJD, antral ulcer Last Myocardial Infarction Date:: 12/14/13 History of Any Multi-Drug Resistant Organisms: None Reported Past Surgical History: Heart Catheterization With Stent, Hernia Repair, Orthopedic Surgery Additional Past Surgical History / Comment(s): STENTS X4, Left hand surgery, jared cataract, EGD Past Anesthesia/Blood Transfusion Reactions: No Reported Reaction Date of Last Stent Placement:: 12/14/2013 Past Psychological History: Anxiety Smoking Status: Former smoker Past Alcohol Use History: None Reported Past Drug Use History: None Reported - Past Family History Mother History Unknown: Yes Father Additional Family Medical History / Comment(s): typhoid fever; otherwise unknown hx of father or mother; father was in concentration camp in [facility]. Medications and Allergies Home Medications Medication Instructions Recorded Confirmed Type Nitroglycerin Sl Tabs [Nitrostat] 0.4 mg SUBLINGUAL Q5M PRN 12/14/13 09/03/18 History Aspirin EC [Ecotrin Low Dose] 81 mg PO DAILY 02/12/17 09/03/18 History Isosorbide Mononitrate [Imdur] 30 mg PO DAILY 02/12/17 09/03/18 History Metoprolol Tartrate [Lopressor] 25 mg PO DAILY #30 tab 02/14/17 09/03/18 Rx Atorvastatin [Lipitor] 40 mg PO HS 03/15/17 09/03/18 History Gabapentin [Neurontin] 100 mg PO TID 09/03/18 09/03/18 History LORazepam [Ativan] 1 mg PO BID 09/03/18 09/03/18 History Allergies Allergy/AdvReac Type Severity Reaction Status Date / Time clopidogrel [From Plavix] Allergy Unknown Verified 09/03/18 14:39 procaine [Procaine] Allergy Rash/Hives Verified 09/03/18 14:39 procaine HCl [From Novocain] Allergy Rash/Hives Verified 09/03/18 14:39 Physical Exam Vitals: Vital Signs Temp Pulse Resp BP Pulse Ox 09/03/18 14:01 50 L 18 109/49 98 09/03/18 13:26 96.9 F L 46 L 18 113/63 97 Intake and Output 09/03/18 09/03/18 09/03/18 06:59 14:59 22:59 Other: Weight 90.718 kg Constitutional: No acute distress, conversant, pleasant Eyes: Anicteric sclerae, moist conjunctiva, no lid-lag, PERRLA ENMT: NC/AT,Oropharynx clear, no erythema, exudates Neck:Supple, FROM, no masses, or JVD, No carotid bruits; No thyromegaly Lungs: Clear to auscultation, Clear to percussion, Normal respiratory effort, no accessory muscle use Cardiovascular: Irregularly irregular, bradycardic, No murmurs, gallops, or rubs no peripheral edema Abdominal: Soft Nontender, nom distended, no guarding, no rebound or rigidity, Normoactive bowel sounds No hepatomegaly, No splenomegaly, No palpable mass No abdominal wall hernia noted Skin: Normal temperature, tone, texture, turgor, No induration No subcutaneous nodules, No rash, lesions, No ulcers Extremities:No digital cyanosis No clubbing, Pedal pulses intact and symmetrical Radial pulses intact and symmetrical Normal gait and station, No calf tenderness Psychiatric: Alert and oriented to person, place and time, Appropriate affect Intact judgement Neuro: Muscles Strength 5/5 in all 4 extremities, Sensation to light touch grossly present throughout, Cranial nerves II-XII grossly intact. No focal sensory deficits Assessment and Plan (1) Chest pain Current Visit: Yes Status: Acute Code(s): R07.9 - CHEST PAIN, UNSPECIFIED SNOMED Code(s): 02647309 (2) New onset a-fib Current Visit: Yes Status: Acute Code(s): I48.91 - UNSPECIFIED ATRIAL FIBRILLATION SNOMED Code(s): 49535723 (3) CAD (coronary artery disease) Current Visit: No Status: Acute Code(s): I25.10 - ATHSCL HEART DISEASE OF [place] CORONARY ARTERY W/O ANG PCTRS SNOMED Code(s): 66536240 (4) HTN (hypertension) Current Visit: No Status: Acute Code(s): I10 - ESSENTIAL (PRIMARY) HYPERTENSION SNOMED Code(s): 08584808 (5) Hyperlipemia Current Visit: No Status: Acute Code(s): E78.5 - HYPERLIPIDEMIA, UNSPECIFIED SNOMED Code(s): 24206972 Plan: The patient is admitted with anticipated greater than 2 midnight stay with chest pain in the setting of new onset A. fib with bradycardia, workup for chest pain including a negative troponin and EKG without any suggestion of acute ischemia. Patient was transferred here from [place], currently has a slowed that particular rate. Continue workup with TSH, echocardiogram, and plans for cardiology consultation. The patient was started on anticoagulation with heparin IV drip per protocol. We'll continue to trend troponins and follow up any cardiology recommendations. CODE STATUS: DO NOT RESUSCITATE Discussed plan of care with; patient and daughter Joyce ( DPOA) Prophylaxis heparin drip anticipated discharge: 1-2 days :
[2018-09-03] MEDS: GABAPENTIN 100 MG CAP PO SCH ×2 (16:02→21:04)
[2018-09-03] MEDS ORDERED: HEPARIN SOD,PORK IN 0.45% NACL 25,000 UNIT in 0.45% NACL 1 250ML.BAG IV SCH (16:30)
[2018-09-03 18:09] VITALS: BMI 33.0
[2018-09-03 19:33] LABS: Calcium 9.1 mg/dL (8.4-10.2); Magnesium 2.2 mg/dL (1.6-2.3); Potassium 4.3 mmol/L (3.5-5.1)
[2018-09-03] MEDS: LORazepam 1 MG TAB PO SCH (20:47)
[2018-09-03] MEDS: ATORVASTATIN 40 MG TAB PO SCH (20:47)
[2018-09-04 06:22] LABS: HCT 47.3 % (39.0-53.0); HGB 14.8 gm/dL (13.0-17.5); MCH 27.7 pg (25.0-35.0); MCHC 31.3 g/dL (31.0-37.0); MCV 88.4 fL (80.0-100.0); Mean Platelet Volume 6.9; Platelet Count 178 k/uL (150-450); RBC 5.35 m/uL (4.30-5.90); RDW 14.2 % (11.5-15.5); WBC 5.6 k/uL (3.8-10.6)
[2018-09-04 06:29] LABS: Albumin 3.2 g/dL (3.5-5.0); Calcium 9.1 mg/dL (8.4-10.2); Magnesium 2.1 mg/dL (1.6-2.3); Potassium 4.5 mmol/L (3.5-5.1); Total Bilirubin 0.9 mg/dL (0.2-1.3); Total Protein 5.7 g/dL (6.3-8.2)
[2018-09-04 07:24] LABS: Band Neutrophils % 2 %; Eosinophils # (M) 0.34 k/uL (0-0.7); Monocytes # (M) 0.62 k/uL (0-1.0); Neutrophils % (M) 56 %; Nucleated Red Blood Cells 0 /100 WBC (0-0); Total Cells Counted 100
[2018-09-04 07:31] LABS: Anisocytosis (M) Present; Ovalocytes Present
[2018-09-04] MEDS ORDERED: APIXABAN 2.5 MG TABLET PO SCH (09:00)
[2018-09-04] MEDS ORDERED: ASPIRIN 325 MG TAB PO SCH (09:00)
[2018-09-04] MEDS: LORazepam 1 MG TAB PO SCH ×2 (09:13→20:28)
[2018-09-04] MEDS: GABAPENTIN 100 MG CAP PO SCH ×3 (09:13→20:28)
[2018-09-04] MEDS: ASPIRIN 81 MG PO SCH (09:13)
[2018-09-04] MEDS: ISOSORBIDE MONONITRATE ER 30 MG TAB.ER.24H PO SCH (09:13)
--- NOTE | 2018-09-04 10:08 | ECHOF ---
Referral Reason:new onset afib MEASUREMENTS -------- HEIGHT: 167.6 cm WEIGHT: 90.7 kg BP: 130/62 RVIDd: 3.0 cm (< 3.3) IVSd: 1.3 cm (0.6 - 1.1) LVIDd: 4.9 cm (3.9 - 5.3) LVPWd: 1.4 cm (0.6 - 1.1) IVSs: 1.8 cm LVIDs: 3.8 cm LVPWs: 1.7 cm LA Diam: 4.1 cm (2.7 - 3.8) LAESV Index (A-L): 44.19 ml/m Ao Diam: 3.5 cm (2.0 - 3.7) AV Cusp: 1.6 cm (1.5 - 2.6) MV EXCURSION: 17.007 mm (> 18.000) MV EF SLOPE: 72 mm/s (70 - 150) EPSS: 1.0 cm FINDINGS -------- The rhythm appears to be atrial flutter. This was a technically adequate study. The left ventricular size is normal. There is moderate concentric left ventricular hypertrophy. O verall left ventricular systolic function is moderate-severely impaired with, an EF between 30 - 35 % . Global hypokinesis The right ventricle is normal in size. LA is severely dilated >40 ml/m2 The right atrium is normal in size. Interatrial and interventricular septum intact. There is mild aortic valve sclerosis. The mitral valve leaflets are mildly thickened. Ages-et-hwnwotss mitral regurgitation is present. The tricuspid valve appears structurally normal. Trace/mild (physiologic) pulmonic regurgitation. The aortic root size is normal. Normal inferior vena cava with normal inspiratory collapse consistent with estimated right atrial pre ssure of 5 mmHg. There is no pericardial effusion. CONCLUSIONS -------- 1. The rhythm appears to be atrial flutter. 2. This was a technically adequate study. 3. The left ventricular size is normal. 4. There is moderate concentric left ventricular hypertrophy. 5. Overall left ventricular systolic function is moderate-severely impaired with, an EF between 30 - 35 %. 6. Global hypokinesis 7. The right ventricle is normal in size. 8. LA is severely dilated >40 ml/m2 9. The right atrium is normal in size. 10. Interatrial and interventricular septum intact. 11. There is mild aortic valve sclerosis. 12. The mitral valve leaflets are mildly thickened. 13. Fdla-cs-efintfzl mitral regurgitation is present. 14. The tricuspid valve appears structurally normal. 15. Trace/mild (physiologic) pulmonic regurgitation. 16. The aortic root size is normal. 17. Normal inferior vena cava with normal inspiratory collapse consistent with estimated right atrial pressure of 5 mmHg. 18. There is no pericardial effusion. TRANSCRIPT CLERK: Diandra Mendoza RDCS
--- NOTE | 2018-09-04 14:42 | P.CRDCN ---
History of Present Illness History of present illness: This is Neeta Butt PA-C dictating a consult on this patient The patient was interviewed and examined by me IMPRESSION / ASSESSMENT: New-onset atrial fibrillation with slow ventricular response, normal TSH, normal electrical Ischemic cardiomyopathy with reduced ejection fraction CAD with recent non-Q-wave CT Hypertension Dyslipidemia PLAN: Anticoagulation for stroke hypertension with Eliquis 5 mg twice a day, based on his age, creatinine clearance and weight., No history of falls or GI bleeding or anemia, we'll continue a baby aspirin Patient is ALLERGIC to Plavix Continue statins Hold off on beta blockers due to his slow ventricular response Start on lisinopril 10 mg daily he will need beta aftab therapy due to his reduced ejection fraction and post CT status/ischemic cardiomyopathy and therefore device therapy is indicated along with beta aftab therapy Will discuss with patient and his daughter Dr. Valdez spoke with the patient's daughter and discussed the plan regarding anticoagulation for stroke prevention and assessment of bradycardia and need for permanent pacing in the future and the daughter verbalized her agreement with this plan HPI Patient is an 87-year-old male with a past medical history significant for coronary artery disease status post stenting, recent non-Q-wave CT in March 2018, hypertension, dyslipidemia, and LV systolic dysfunction who presented with complaints of chest pain. He describes the pain as a sharp stabbing pain in the center of his chest with associated shortness of breath. This pain is very different from the pain he had when he had his myocardial infarction. That pain was more of a tightness/ pressure, he described it as "it felt like someone is punching him in the chest". He also admits to some intermittent dizziness and weakness in his legs. Denies syncope or falls or palpitations. He was found to in atrial fibrillation with a slow ventricular response in the 40s to 50s, this is a new diagnosis for him. Cardiac enzymes were negative. He was on metoprolol tartrate 25 mg daily which was discontinued. He was started on IV heparin. Patient is a nondiabetic, former smoker, denies alcohol use ROS: No fevers, chills or rigors, no cough, phlegm or expectoration, no nausea, vomiting or diarrhea, or GI bleeding no hematuria, dysuria, no musculoskeletal complaints, no strokes or seizures, No history of anemia no skin lesions. EXAMINATION: Temperature 97.8F, pulse 66, respirations 20, blood pressure 101/72, oxygen saturations 93% on room air Patient seen and examined resting comfortably in bed, no acute distress heart is irregular, no murmurs appreciated Lungs clear to auscultation bilaterally No elevated JVD No lower extremity edema REVIEW OF LABS, ECG & MEDICAL DATA Hemoglobin 14.8, weight L: 5.6, potassium 4.5, BUN 25, creatinine 1.27, troponins normal 3, TSH 2.98 echo today showed normal LV size, moderate concentric LVH, EF 30-35%, global hypokinesis, severely dilated LA, mild to moderate MR EKG shows atrial fibrillation with slow ventricular response Past Medical History Past Medical History: Coronary Artery Disease (CAD), Chest Pain / Angina, Heart Failure, Hyperlipidemia, Hypertension, Myocardial Infarction (CT), Osteoarthritis (OA) Additional Past Medical History / Comment(s): CHF, ANGINA, Stents x 4, DJD, antral ulcer Last Myocardial Infarction Date:: 12/14/13 History of Any Multi-Drug Resistant Organisms: None Reported Past Surgical History: Heart Catheterization With Stent, Hernia Repair, Orthopedic Surgery Additional Past Surgical History / Comment(s): STENTS X4, Left hand surgery, jared cataract, EGD Past Anesthesia/Blood Transfusion Reactions: No Reported Reaction Date of Last Stent Placement:: 12/14/2013 Past Psychological History: Anxiety Additional Psychological History / Comment(s): Pt states he resides with his spouse of 67yrs. He uses no assistive device. He drives. Smoking Status: Former smoker Past Alcohol Use History: None Reported Additional Past Alcohol Use History / Comment(s): Pt started smoking in 1943 and quit in 1980 Past Drug Use History: None Reported - Past Family History Mother History Unknown: Yes Father Additional Family Medical History / Comment(s): typhoid fever; otherwise unknown hx of father or mother; father was in concentration camp in [facility]. Medications and Allergies Home Medications Medication Instructions Recorded Confirmed Type Nitroglycerin Sl Tabs [Nitrostat] 0.4 mg SUBLINGUAL Q5M PRN 12/14/13 09/03/18 History Aspirin EC [Ecotrin Low Dose] 81 mg PO DAILY 02/12/17 09/03/18 History Isosorbide Mononitrate [Imdur] 30 mg PO DAILY 02/12/17 09/03/18 History Metoprolol Tartrate [Lopressor] 25 mg PO DAILY #30 tab 02/14/17 09/03/18 Rx Atorvastatin [Lipitor] 40 mg PO HS 03/15/17 09/03/18 History Gabapentin [Neurontin] 100 mg PO TID 09/03/18 09/03/18 History LORazepam [Ativan] 1 mg PO BID 09/03/18 09/03/18 History Allergies Allergy/AdvReac Type Severity Reaction Status Date / Time clopidogrel [From Plavix] Allergy Unknown Verified 09/03/18 14:39 procaine [Procaine] Allergy Rash/Hives Verified 09/03/18 14:39 procaine HCl [From Novocain] Allergy Rash/Hives Verified 09/03/18 14:39 Physical Exam Vitals: Vital Signs Temp Pulse Pulse Resp BP BP Pulse Ox 09/04/18 12:00 97.8 F 66 24 101/72 93 L 09/04/18 11:57 67 20 09/04/18 08:00 97.6 F 51 L 20 134/79 09/04/18 04:00 98 F 43 L 16 130/62 94 L 09/04/18 00:00 98 F 42 L 22 119/64 09/03/18 20:00 97.8 F 51 L 19 143/98 94 L 09/03/18 16:58 97.8 F 56 L 18 154/75 96 09/03/18 16:11 97.6 F 58 L 14 143/98 95 09/03/18 16:00 51 L 18 131/64 97 Intake and Output 09/03/18 09/04/18 09/04/18 22:59 06:59 14:59 Intake Total 380 80 Output Total 890 700 Balance -510 -620 Intake: IV 180 80 0.9 180 80 Oral 200 Output: Urine 890 700 Other: Voiding Method Urinal # Voids 2 Weight 92.1 kg Results 09/04/18 05:19 09/04/18 05:19 Cardiac Enzymes 09/03/18 09/03/18 09/04/18 Range/Units 13:53 19:06 01:36 AST (17-59) U/L Troponin I 0.028 0.020 0.033 (0.000-0.034) ng/mL 09/04/18 Range/Units 05:19 AST 18 (17-59) U/L Troponin I (0.000-0.034) ng/mL Coagulation 09/03/18 09/04/18 Range/Units 22:21 05:19 APTT 53.0 H 69.3 H (22.0-30.0) sec Lipids 09/04/18 Range/Units 05:19 Triglycerides 68 (<150) mg/dL Cholesterol 113 (<200) mg/dL HDL Cholesterol 39 L (40-60) mg/dL CBC 09/04/18 Range/Units 05:19 WBC 5.6 (3.8-10.6) k/uL RBC 5.35 (4.30-5.90) m/uL Hgb 14.8 (13.0-17.5) gm/dL Hct 47.3 (39.0-53.0) % Plt Count 178 (150-450) k/uL Comprehensive Metabolic Panel 09/03/18 09/04/18 Range/Units 19:06 05:19 Sodium 142 141 (137-145) mmol/L Potassium 4.3 4.5 (3.5-5.1) mmol/L Chloride 107 108 H (98-107) mmol/L Carbon Dioxide 28 26 (22-30) mmol/L BUN 28 H 25 H (9-20) mg/dL Creatinine 1.33 H 1.27 H (0.66-1.25) mg/dL Glucose 131 H 89 (74-99) mg/dL Calcium 9.1 9.1 (8.4-10.2) mg/dL AST 18 (17-59) U/L ALT 23 (21-72) U/L Alkaline Phosphatase 85 (38-126) U/L Total Protein 5.7 L (6.3-8.2) g/dL Albumin 3.2 L (3.5-5.0) g/dL Current Medications Generic Name Dose Route Start Last Admin Trade Name Freq PRN Reason Stop Dose Admin Apixaban 5 mg 09/04/18 21:00 Eliquis PO BID АНДРЕЙ Aspirin 81 mg 09/04/18 09:00 09/04/18 09:13 Aspirin PO 81 mg DAILY АНДРЕЙ Administration Atorvastatin Calcium 40 mg 09/03/18 21:00 09/03/18 20:47 Lipitor PO 40 mg HS АНДРЕЙ Administration Gabapentin 100 mg 09/03/18 16:00 09/04/18 09:13 Neurontin PO 100 mg TID АНДРЕЙ Administration Isosorbide Mononitrate 30 mg 09/04/18 09:00 09/04/18 09:13 Imdur PO 30 mg DAILY АНДРЕЙ Administration Lorazepam 1 mg 09/03/18 21:00 09/04/18 09:13 Ativan PO 1 mg BID АНДРЕЙ Administration Nitroglycerin 0.4 mg 09/03/18 15:07 Nitrostat SUBLINGUAL Q5M PRN Chest Pain Intake and Output 09/03/18 09/04/18 09/04/18 22:59 06:59 14:59 Intake Total 380 80 Output Total 890 700 Balance -510 -620 Intake: IV 180 80 0.9 180 80 Oral 200 Output: Urine 890 700 Other: Voiding Method Urinal # Voids 2 Weight 92.1 kg 09/04/18 05:19 09/04/18 05:19
--- NOTE | 2018-09-04 14:57 | P.PN ---
Subjective Progress Note Date: 09/04/18 patient seen and examined at bedside doing well denies any chest pain shortness of breath or dizziness, per nursing reports patient apparently has been bradycardic down to the high 20s with his heart rate overnight shift Objective - Vital Signs Vital signs: Vital Signs Temp 97.8 F 09/04/18 12:00 Pulse 66 09/04/18 12:00 Resp 24 09/04/18 12:00 BP 101/72 09/04/18 12:00 Pulse Ox 93 L 09/04/18 12:00 Intake & Output 09/03/18 09/04/18 09/04/18 18:59 06:59 18:59 Intake Total 380 80 Output Total 890 700 Balance -510 -620 Weight 90.718 kg 92.1 kg Intake: IV 180 80 0.9 180 80 Oral 200 Output: Urine 890 700 Other: Voiding Method Urinal # Voids 2 - Exam Constitutional: No acute distress, conversant, pleasant Eyes: Anicteric sclerae, moist conjunctiva, no lid-lag, PERRLA ENMT: NC/AT,Oropharynx clear, no erythema, exudates Neck:Supple, FROM, no masses, or JVD, No carotid bruits; No thyromegaly Lungs: Clear to auscultation, Clear to percussion, Normal respiratory effort, no accessory muscle use Cardiovascular: Heart regular in rate and rhythm, bradycardic, No murmurs, gallops, or rubs no peripheral edema Abdominal: Soft Nontender, nom distended, no guarding, no rebound or rigidity, Normoactive bowel sounds No hepatomegaly, No splenomegaly, No palpable mass No abdominal wall hernia noted Skin: Normal temperature, tone, texture, turgor, No induration No subcutaneous nodules, No rash, lesions, No ulcers Extremities:No digital cyanosis No clubbing, Pedal pulses intact and symmetrical Radial pulses intact and symmetrical Normal gait and station, No calf tenderness Psychiatric: Alert and oriented to person, place and time, Appropriate affect Intact judgement Neuro: Muscles Strength 5/5 in all 4 extremities, Sensation to light touch grossly present throughout, Cranial nerves II-XII grossly intact. No focal sensory deficits - Labs CBC & Chem 7: 09/04/18 05:19 09/04/18 05:19 Labs: Abnormal Lab Results - Last 24 Hours (Table) 09/03/18 09/03/18 09/04/18 Range/Units 19:06 22:21 05:19 APTT 53.0 H (22.0-30.0) sec Chloride 108 H (98-107) mmol/L BUN 28 H 25 H (9-20) mg/dL Creatinine 1.33 H 1.27 H (0.66-1.25) mg/dL Glucose 131 H (74-99) mg/dL Total Protein 5.7 L (6.3-8.2) g/dL Albumin 3.2 L (3.5-5.0) g/dL HDL Cholesterol 39 L (40-60) mg/dL 09/04/18 Range/Units 05:19 APTT 69.3 H (22.0-30.0) sec Chloride (98-107) mmol/L BUN (9-20) mg/dL Creatinine (0.66-1.25) mg/dL Glucose (74-99) mg/dL Total Protein (6.3-8.2) g/dL Albumin (3.5-5.0) g/dL HDL Cholesterol (40-60) mg/dL Assessment and Plan (1) Chest pain Current Visit: Yes Status: Acute Code(s): R07.9 - CHEST PAIN, UNSPECIFIED SNOMED Code(s): 78903381 (2) New onset a-fib Narrative/Plan: * Ventricular rate continues to be slowed * Echocardiogram showing ejection fraction of 30-35% with global hypokinesis and severely dilated left atrium * Patient transitioned from IV heparin to DOAC with Eliquis, beta aftab on hold secondary to severe bradycardia * Cardiology is consulted for further recommendations Current Visit: Yes Status: Acute Code(s): I48.91 - UNSPECIFIED ATRIAL FIBRILLATION SNOMED Code(s): 44896969 (3) Bradycardia Narrative/Plan: * Continue monitoring cardiology following * Concern for underlying sick sinus syndrome * We'll need evaluation for possible pacemaker placement Current Visit: Yes Status: Acute Code(s): R00.1 - BRADYCARDIA, UNSPECIFIED SNOMED Code(s): 14629333 (4) Ischemic cardiomyopathy Narrative/Plan: * EF of 30-35% * Clinically euvolemic without any acute CHF exacerbation this time * Beta blockers contraindicated due to severe bradycardia, initiated on BENITEZ inhibitor by cardiology Current Visit: Yes Status: Acute Code(s): I25.5 - ISCHEMIC CARDIOMYOPATHY SNOMED Code(s): 455210357 (5) CAD (coronary artery disease) Narrative/Plan: * Continue with aspirin and statin therapy Current Visit: No Status: Chronic Code(s): I25.10 - ATHSCL HEART DISEASE OF [place] CORONARY ARTERY W/O ANG PCTRS SNOMED Code(s): 54866692 (6) HTN (hypertension) Current Visit: No Status: Acute Code(s): I10 - ESSENTIAL (PRIMARY) HYPERTENSION SNOMED Code(s): 70130100 (7) Hyperlipemia Current Visit: No Status: Acute Code(s): E78.5 - HYPERLIPIDEMIA, UNSPECIFIED SNOMED Code(s): 72217971
[2018-09-04] MEDS: APIXABAN 5 MG TAB PO SCH (16:24)
[2018-09-04] MEDS: ATORVASTATIN 40 MG TAB PO SCH (20:28)
[2018-09-05] MEDS: LISINOPRIL 10 MG TAB PO SCH (07:52)
[2018-09-05] MEDS: LORazepam 1 MG TAB PO SCH ×2 (07:52→19:28)
[2018-09-05] MEDS: ASPIRIN 81 MG PO SCH (07:52)
[2018-09-05] MEDS: APIXABAN 5 MG TAB PO SCH ×2 (07:52→19:28)
[2018-09-05] MEDS: GABAPENTIN 100 MG CAP PO SCH ×3 (07:52→19:29)
[2018-09-05] MEDS: ISOSORBIDE MONONITRATE ER 30 MG TAB.ER.24H PO SCH (07:52)
[2018-09-05] MEDS ORDERED: ceFAZolin 1,000 MG in SODIUM CHLORIDE 0.9% IRRIGATIO 250 ML IRRIGATION ONE (10:37)
[2018-09-05] MEDS ORDERED: ceFAZolin IN SWFI 2 GM/20 ML SYRINGE IVP ONE (10:37)
[2018-09-05] MEDS ORDERED: SODIUM CHLORIDE 0.9% 1,000 ML IV SCH (10:45)
--- NOTE | 2018-09-05 11:19 | P.PN ---
Subjective Progress Note Date: 09/05/18 patient seen and examined at bedside doing well denies any chest pain shortness of breath or dizziness, per nursing reports patient continues to be bradycardic with heart rate in the 40s. No acute events overnight Objective - Vital Signs Vital signs: Vital Signs Temp 98.1 F 09/05/18 07:55 Pulse 66 09/05/18 07:55 Resp 18 09/05/18 07:55 BP 144/65 09/05/18 07:55 Pulse Ox 97 09/05/18 07:55 Intake & Output 09/04/18 09/05/18 09/05/18 18:59 06:59 18:59 Intake Total 797.334 480 Output Total 700 Balance 97.334 480 Weight 89 kg Intake: IV 80 0.9 80 Intake, IV Titration 237.334 Amount Heparin Sod,Pork in 0.45% 237.334 NaCl 25,000 unit In 0.45 % NaCl 1 250ml.bag @ 11 UNITS/KG/HR 9.979 mls/hr IV .Q24H [facility] Rx#: [id number] Oral 480 480 Output: Urine 700 Other: Voiding Method Urinal Urinal # Voids 2 1 - Exam Constitutional: No acute distress, conversant, pleasant Eyes: Anicteric sclerae, moist conjunctiva, no lid-lag, PERRLA ENMT: NC/AT,Oropharynx clear, no erythema, exudates Neck:Supple, FROM, no masses, or JVD, No carotid bruits; No thyromegaly Lungs: Clear to auscultation, Clear to percussion, Normal respiratory effort, no accessory muscle use Cardiovascular: Heart regular in rate and rhythm, bradycardic, No murmurs, gallops, or rubs no peripheral edema Abdominal: Soft Nontender, nom distended, no guarding, no rebound or rigidity, Normoactive bowel sounds No hepatomegaly, No splenomegaly, No palpable mass No abdominal wall hernia noted Skin: Normal temperature, tone, texture, turgor, No induration No subcutaneous nodules, No rash, lesions, No ulcers Extremities:No digital cyanosis No clubbing, Pedal pulses intact and sym metrical Radial pulses intact and symmetrical Normal gait and station, No calf tenderness Psychiatric: Alert and oriented to person, place and time, Appropriate affect Intact judgement Neuro: Muscles Strength 5/5 in all 4 extremities, Sensation to light touch grossly present throughout, Cranial nerves II-XII grossly intact. No focal sensory deficits - Labs CBC & Chem 7: 09/04/18 05:19 09/04/18 05:19 Assessment and Plan (1) Chest pain Current Visit: Yes Status: Acute Code(s): R07.9 - CHEST PAIN, UNSPECIFIED SNOMED Code(s): 15788970 (2) New onset a-fib Narrative/Plan: * Ventricular rate continues to be slowed * Echocardiogram showing ejection fraction of 30-35% with global hypokinesis and severely dilated left atrium * Patient transitioned from IV heparin to DOAC with Eliquis, beta aftab on hold secondary to severe bradycardia * Appreciate cardiology recommendations Current Visit: Yes Status: Acute Code(s): I48.91 - UNSPECIFIED ATRIAL FIBRILLATION SNOMED Code(s): 07749889 (3) Bradycardia Narrative/Plan: * Continue monitoring cardiology following * Concern for underlying sick sinus syndrome * Discussed with cardiology Dr. Andrade planning to take the patient for dual- chamber permanent pacemaker placement in the morning Current Visit: Yes Status: Acute Code(s): R00.1 - BRADYCARDIA, UNSPECIFIED SNOMED Code(s): 78535572 (4) Ischemic cardiomyopathy Narrative/Plan: * EF of 30-35% * Clinically euvolemic without any acute CHF exacerbation this time * Beta blockers contraindicated due to severe bradycardia, initiated on BENITEZ inhibitor by cardiology Current Visit: Yes Status: Acute Code(s): I25.5 - ISCHEMIC CARDIOMYOPATHY SNOMED Code(s): 823176457 (5) CAD (coronary artery disease) Narrative/Plan: * Continue with aspirin and statin therapy Current Visit: No Status: Chronic Code(s): I25.10 - ATHSCL HEART DISEASE OF [place] CORONARY ARTERY W/O ANG PCTRS SNOMED Code(s): 89477831 (6) HTN (hypertension) Narrative/Plan: * Blood pressure stable and controlled on current regimen Current Visit: No Status: Chronic Code(s): I10 - ESSENTIAL (PRIMARY) HYPERTENSION SNOMED Code(s): 39865370 (7) Hyperlipemia Current Visit: No Status: Acute Code(s): E78.5 - HYPERLIPIDEMIA, UNSPECIFIED SNOMED Code(s): 44442446 Plan: CODE STATUS: DO NOT RESUSCITATE Discussed plan of care with; patient and daughter Joyce ( DPOA) Prophylaxis on DOAC anticipated discharge: 1-2 days :
--- NOTE | 2018-09-05 12:03 | P.PN ---
Subjective Progress Note Date: 09/05/18 Pleasant 87-year-old gentleman admitted to the hospital with new onset atrial fibrillation with slow ventricular response, ischemic cardio myopathy with reduced ejection fraction, CAD with recent non-Q-wave [place], hypertension, hyperlipidemia. Dr. Valdez had a lengthy discussion with the patient this morning advising that the patient undergo implantation of a biventricular pacemaker tomorrow, the risks and the benefits were explained to the patient in detail and he is willing to proceed. This morning his heart rate is in the 40s to 50s when sitting, in the 60 range with ambulation. He denies any dizziness or lightheadedness, no palpitations. Blood pressure 100/50. White blood cell count 5.6, hemoglobin 14.8, platelet count 178. Sodium 141, potassium 4.5, BUN 25 and creatinine 1.2. Magnesium 2.1. TSH 2.9. Objective - Vital Signs Vital signs: Vital Signs Temp 97.3 F L 09/05/18 11:23 Pulse 65 09/05/18 11:24 Resp 18 09/05/18 11:24 BP 100/54 09/05/18 11:23 Pulse Ox 96 09/05/18 11:23 Intake & Output 09/04/18 09/05/18 09/05/18 18:59 06:59 18:59 Intake Total 797.334 480 Output Total 700 300 Balance 97.334 180 Weight 89 kg Intake: IV 80 0.9 80 Intake, IV Titration 237.334 Amount Heparin Sod,Pork in 0.45% 237.334 NaCl 25,000 unit In 0.45 % NaCl 1 250ml.bag @ 11 UNITS/KG/HR 9.979 mls/hr IV .Q24H [facility] Rx#: [id number] Oral 480 480 Output: Urine 700 300 Other: Voiding Method Urinal Urinal # Voids 2 1 1 - Exam PHYSICAL EXAMINATION: GENERAL: 87-year-old gentleman in no acute distress at the time of my examination HEENT: Head is atraumatic, normocephalic. Pupils equal, round. Sclera anicteric. Conjunctiva are clear. Mucous membranes of the mouth are moist. Neck is supple. There is no elevated jugular venous pressure. No carotid bruit is heard. HEART EXAMINATION: Heart S1 and S2 irregularly irregular a systolic murmur is heard CHEST EXAMINATION: Lungs are clear to auscultation and precussion. No chest wall tenderness is noted on palpation or with deep breathing. ABDOMEN: Soft, nontender. Bowel sounds are heard. No organomegaly noted. EXTREMITIES: 2+ peripheral pulses with no evidence of peripheral edema and no calf tenderness noted. NEUROLOGIC patient is awake, alert and oriented 3 . . - Labs CBC & Chem 7: 09/04/18 05:19 09/04/18 05:19 Assessment and Plan Plan: Assessment and plan #1 new onset atrial fibrillation, persistent, with slow ventricular response #2 ischemic cardiomyopathy with reduced ejection fraction #3 coronary artery disease with recent non-Q-wave FL #4 hypertension 5 hyperlipidemia Plan Patient will be scheduled tomorrow to undergo implantation of a bi-V pacemaker. The risks and the benefits were explained to the patient in detail, this will be performed tomorrow by Dr. Valdez. DNP note has been reviewed, I agree with a documented findings and plan of care. Patient was seen and examined.
--- NOTE | 2018-09-05 12:23 | P.PN ---
Progress Note - Text Patient interviewed and examined along with Dr. barfield today I had a detailed discussion with the patient I reviewed all the data This gentleman has ischemic cardio myopathy with severe LV dysfunction He still remains bradycardic after stopping low-dose beta blockers Beta blockers are clinically indicated for management of his ischemic cardio myopathy Currently he has persistent atrial fibrillation and has just been anticoagulated for stroke prevention However via unable to restart his medications for cardiomyopathy management on account of bradycardia A single chamber pacemaker will result in which he 100% RV pacing which would be detrimental from a heart failure standpoint Currently he has class 1-2 heart failure, chronic without any acute exacerbation RV pacing resulted in deterioration of his clinical status over time I would recommend implantation of a biventricular pacemaker along with beta aftab therapy I will discuss this with his daughter. I did try to call her today what her phone was busy I had a detailed discussion with the patient and I explained to him that he needs a special kind of a device, not a standard device since it would result in worsening of his breathing and quality of life
[2018-09-05] MEDS: SODIUM CHLORIDE 0.9% 1,000 ML IV SCH (15:36)
[2018-09-05] MEDS: ATORVASTATIN 40 MG TAB PO SCH (19:28)
[2018-09-06] MEDS: SODIUM CHLORIDE 0.9% 1,000 ML IV SCH (04:48)
[2018-09-06] MEDS ORDERED: ceFAZolin 1,000 MG in SODIUM CHLORIDE 0.9% IRRIGATIO 250 ML IRRIGATION ONE (06:00)
[2018-09-06] MEDS ORDERED: ceFAZolin IN SWFI 2 GM/20 ML SYRINGE IVP ONE (06:00)
[2018-09-06] MEDS: APIXABAN 5 MG TAB PO SCH ×2 (06:12→20:27)
[2018-09-06] MEDS: ASPIRIN 81 MG PO SCH (06:12)
[2018-09-06] MEDS: GABAPENTIN 100 MG CAP PO SCH ×3 (06:12→20:27)
[2018-09-06] MEDS ORDERED: ISOSORBIDE MONONITRATE ER 60 MG TAB.ER.24H PO SCH (09:00)
[2018-09-06 11:50] LABS: Glucose,Whole Blood 100 mg/dL (75-99)
--- NOTE | 2018-09-06 12:27 | P.PN ---
Subjective Progress Note Date: 09/06/18 patient seen and examined at bedside doing well, patient scheduled to have biventricular pacemaker placement today Objective - Vital Signs Vital signs: Vital Signs Temp 97.5 F L 09/06/18 11:34 Pulse 63 09/06/18 11:34 Resp 18 09/06/18 11:34 BP 126/57 09/06/18 11:34 Pulse Ox 98 09/06/18 11:34 Intake & Output 09/05/18 09/06/18 09/06/18 18:59 06:59 18:59 Intake Total 1440 10 200 Output Total 300 350 Balance 1140 10 -150 Weight 89.4 kg Intake: IV 10 Invasive Line 3 10 Intake, IV Titration 200 Amount Sodium Chloride 0.9% 1, 200 000 ml @ 50 mls/hr IV . Q20H [facility] Rx#:[id number] Oral 1440 Output: Urine 300 350 Other: Voiding Method Urinal Urinal # Voids 1 1 1 - Exam Constitutional: No acute distress, conversant, pleasant Eyes: Anicteric sclerae, moist conjunctiva, no lid-lag, PERRLA ENMT: NC/AT,Oropharynx clear, no erythema, exudates Neck:Supple, FROM, no masses, or JVD, No carotid bruits; No thyromegaly Lungs: Clear to auscultation, Clear to percussion, Normal respiratory effort, no accessory muscle use Cardiovascular: Heart regular in rate and rhythm, bradycardic, No murmurs, gallops, or rubs no peripheral edema Abdominal: Soft Nontender, nom distended, no guarding, no rebound or rigidity, Normoactive bowel sounds No hepatomegaly, No splenomegaly, No palpable mass No abdominal wall hernia noted Skin: Normal temperature, tone, texture, turgor, No induration No subcutaneous nodules, No rash, lesions, No ulcers Extremities:No digital cyanosis No clubbing, Pedal pulses intact and symmetrical Radial pulses intact and symmetrical Normal gait and station, No calf tenderness Psychiatric: Alert and oriented to person, place and time, Appropriate affect Intact judgement Neuro: Muscles Strength 5/5 in all 4 extremities, Sensation to light touch joey ssly present throughout, Cranial nerves II-XII grossly intact. No focal sensory deficits - Labs CBC & Chem 7: 09/04/18 05:19 09/04/18 05:19 Labs: Abnormal Lab Results - Last 24 Hours (Table) 09/06/18 Range/Units 11:49 POC Glucose (mg/dL) 100 H (75-99) mg/dL Assessment and Plan (1) Chest pain Current Visit: Yes Status: Acute Code(s): R07.9 - CHEST PAIN, UNSPECIFIED SNOMED Code(s): 59525270 (2) New onset a-fib Narrative/Plan: * Ventricular rate continues to be slowed * Echocardiogram showing ejection fraction of 30-35% with global hypokinesis and severely dilated left atrium * Patient transitioned from IV heparin to DOAC with Eliquis, beta aftab on hold secondary to severe bradycardia * Appreciate cardiology recommendations Current Visit: Yes Status: Acute Code(s): I48.91 - UNSPECIFIED ATRIAL FIBRILLATION SNOMED Code(s): 03433088 (3) Bradycardia Narrative/Plan: * Continue monitoring cardiology following * Concern for underlying sick sinus syndrome * Continue severe bradycardic despite being discontinued off his beta blockers * Discussed with cardiology Dr. Valdez planning to take the patient for dual- chamber permanent pacemaker placement later today Current Visit: Yes Status: Acute Code(s): R00.1 - BRADYCARDIA, UNSPECIFIED SNOMED Code(s): 13681899 (4) Ischemic cardiomyopathy Narrative/Plan: * EF of 30-35% * Clinically euvolemic without any acute CHF exacerbation this time * Beta blockers contraindicated due to severe bradycardia, initiated on BENITEZ inhibitor by cardiology Current Visit: Yes Status: Acute Code(s): I25.5 - ISCHEMIC CARDIOMYOPATHY SNOMED Code(s): 753658165 (5) CAD (coronary artery disease) Narrative/Plan: * Continue with aspirin and statin therapy Current Visit: No Status: Chronic Code(s): I25.10 - ATHSCL HEART DISEASE OF [place] CORONARY ARTERY W/O ANG PCTRS SNOMED Code(s): 55364442 (6) HTN (hypertension) Narrative/Plan: * Blood pressure stable and controlled on current regimen Current Visit: No Status: Chronic Code(s): I10 - ESSENTIAL (PRIMARY) HYPERTENSION SNOMED Code(s): 18865862 (7) Hyperlipemia Current Visit: No Status: Acute Code(s): E78.5 - HYPERLIPIDEMIA, UNSPECIFIED SNOMED Code(s): 95841568 Plan: CODE STATUS: DO NOT RESUSCITATE Discussed plan of care with; patient and daughter Joyce ( DPOA) Prophylaxis on DOAC anticipated discharge: 1-2 days :
[2018-09-06] MEDS ORDERED: IV FLUID CONTINUATION 1,000 ML IV ONE (12:45)
[2018-09-06] MEDS ORDERED: IOPAMIDOL-250 50ML BTL IV ONE ×2 (12:59→14:00)
[2018-09-06] MEDS ORDERED: LIDOCAINE 1% INJ 10MG/ML (20 ML MDV) ONE (13:10)
[2018-09-06] MEDS ORDERED: fentaNYL (PF) 50 MCG/ML 2 ML AMP ONE (13:16)
[2018-09-06] MEDS ORDERED: PROPOFOL 10 MG/ML 20 ML VIAL IV ONE (13:16)
[2018-09-06] MEDS ORDERED: LIDOCAINE 1% INJ 10MG/ML (20 ML MDV) SQ ONE (13:34)
[2018-09-06] MEDS: LORazepam 1 MG TAB PO SCH ×2 (14:35→20:27)
[2018-09-06] MEDS ORDERED: ACETAMINOPHEN TAB 325 MG TAB PO PRN (15:25)
[2018-09-06] MEDS ORDERED: HYDROcodone/APAP 5-325MG 1 EACH TAB PO PRN (15:25)
[2018-09-06] MEDS ORDERED: ACETAMINOPHEN IV (For NPO) 1,000 MG in EMPTY BAG 1 BAG IVPB ONE (15:25)
--- NOTE | 2018-09-06 15:32 | P.PN ---
Subjective Patient became even more bradycardic despite stopping metoprolol for 48 hours Remains in atrial fibrillation Cardio myopathy, ischemic Known coronary artery disease status post coronary stenting [place] Bradycardia persistent Suggest biventricular pacemaker implantation for management of bradycardia and cardio myopathy with an ejection fraction of 30-35% Objective - Vital Signs Vital signs: Vital Signs Temp 97.5 F L 09/06/18 11:34 Pulse 63 09/06/18 11:34 Resp 18 09/06/18 11:34 BP 126/57 09/06/18 11:34 Pulse Ox 98 09/06/18 11:34 Intake & Output 09/05/18 09/06/18 09/06/18 18:59 06:59 18:59 Intake Total 1440 10 250 Output Total 300 350 Balance 1140 10 -100 Weight 89.4 kg Intake: IV 10 50 Invasive Line 3 10 Intake, IV Titration 200 Amount Sodium Chloride 0.9% 1, 200 000 ml @ 50 mls/hr IV . Q20H [facility] Rx#:[id number] Oral 1440 Output: Urine 300 350 Other: Voiding Method Urinal Urinal # Voids 1 1 1 - Labs CBC & Chem 7: 09/04/18 05:19 09/04/18 05:19 Labs: Abnormal Lab Results - Last 24 Hours (Table) 09/06/18 Range/Units 11:49 POC Glucose (mg/dL) 100 H (75-99) mg/dL
[2018-09-06] MEDS: LISINOPRIL 10 MG TAB PO SCH (16:38)
[2018-09-06] MEDS: METOPROLOL SUCCINATE (ER) 50 MG TAB.ER.24H PO SCH (16:38)
--- NOTE | 2018-09-06 17:21 | PCN ---
PROCEDURE NOTE Osbaldo Dhaliwal is an 87-year-old male patient who was admitted with bradycardia. Low- dose beta blockers were discontinued. However, he remained bradycardic despite stopping beta aftab for greater than 48 hours. In addition, he has ischemic cardiomyopathy, left ventricular ejection fraction 35%, and needs his beta aftab therapy. This morning, he became even more bradycardic and went into the 40s in the wakeful state ambulating around the hallways. Therefore, he was brought in for a biventricular pacemaker implantation to avoid RV pacing. DESCRIPTION OF PROCEDURE: Patient was brought to the EP lab in a fasting state. Written informed consent was obtained prior to the procedure. The left shoulder area was prepped and draped as per protocol 1% lidocaine used for anesthesia. A 4 cm incision was made parallel to the deltopectoral groove, about 1.5 cm medial to it and carried down to the level of the level of the pectoralis muscle. A subfascial pocket was made. Hemostasis was assured. The left axillary vein was accessed at two separate points under fluoroscopy and via appropriately-sized introducer sheaths 3 leads were positioned. Left upper extremity venogram was performed prior to that, and 15 mL dye was injected in the left upper extremity and the left subclavian vein, axillary vein and SVC were patent. The atrial lead was positioned in the right atrial appendage and screwed in. This was a [employer] model #2088TC, 52 cm in length and serial number [id number]. The patient was in atrial tachycardia then. 10 v pacing was negative. The RV lead was positioned in the RV apex. This was a [employer] model #2088TC, 58 cm length and serial number [id number]. The R-waves were 10 mV, pacing impedance 825 ohms, pacing threshold 0.8 V at 0.5 milliseconds. 10 V test negative. The LV lead was positioned in the anterolateral LV vein. This was a [employer] model #1458Q, 75 cm in length and serial number [id number]. The leads and the generator were then placed in a subfascial pocket and the wound was closed in 3 layers and dressed per protocol. The LV sensing was 8.8 mV, pacing impedance 896 ohms, pacing threshold 1.1 V at 0.4 milliseconds and the LV 2-3. However, thresholds were less than 1.5 V in all configurations. The leads were then secured to the underlying pectoralis fascia using 2 nonabsorbable sutures. Pocket was irrigated with antibiotic solution. Leads were connected to the generator ([employer] model number PM [id number], serial #[id number]. The leads and the generator were then placed in subfascial pocket. The wound was closed in 3 layers and dressed per protocol. The device was then programmed to VVIR mode 60-130 ppm, LV pacing from LV 2-3 electrodes. Patient has just been anticoagulated and in the future cardioversion may be considered depending upon the Bi-V pacing percentage. It is anticipated this gentleman will pace the ventricle 100% because of underlying bradycardia, especially after restarting long- acting metoprolol. PLAN: Restart long-acting metoprolol 50 mg p.o. daily and maximize as tolerated. MMODL / IJN: [id number] /
[2018-09-06] MEDS: ceFAZolin IN SWFI 2 GM/20 ML SYRINGE IVP SCH ×2 (17:48→23:41)
[2018-09-06 18:32] VITALS: RESP 18
[2018-09-06] MEDS ORDERED: HYDROmorphone 0.5 MG/0.5 ML SYRINGE IVP PRN (19:06)
[2018-09-06] MEDS: ATORVASTATIN 40 MG TAB PO SCH (20:27)
[2018-09-07] MEDS: ceFAZolin IN SWFI 2 GM/20 ML SYRINGE IVP SCH ×2 (06:30→12:24)
--- NOTE | 2018-09-07 07:30 | XR ---
EXAMINATION TYPE: XR chest 2V DATE OF EXAM: 09/07/2018 COMPARISON: 02/13/2017, 03/15/2017r INDICATION: Lead placement check TECHNIQUE: Frontal and lateral views of the chest are obtained. There is limitation at the apex due to overlying mandible. FINDINGS: The heart size is normal. The pulmonary vasculature is normal. Some minimal subsegmental atelectasis appears to be present at the left base. There may be 1.1 cm nip ple shadow at the right lung base. This is larger than the February 2017 exam. Confirmation with chest x-ray with nipple shadows is recommended. 3-lead pacemaker is been placed. No pneumothorax is evident. IMPRESSION: 1. Minimal subsegmental atelectasis left base. 2. No pneumothorax post pacemaker placement. There is some mild limitation at the apex due to overlyi ng mandible. 3. 1.1 cm nodule right lower lobe may be a nipple shadow. Recommend chest x-ray with nipple markers for additional evaluation
[2018-09-07] MEDS: METOPROLOL SUCCINATE (ER) 50 MG TAB.ER.24H PO SCH (08:43)
[2018-09-07] MEDS: ASPIRIN 81 MG PO SCH (08:43)
[2018-09-07] MEDS: APIXABAN 5 MG TAB PO SCH (08:43)
[2018-09-07] MEDS: LORazepam 1 MG TAB PO SCH (08:43)
--- NOTE | 2018-09-07 11:12 | P.PN ---
Subjective Progress Note Date: 09/07/18 Principal diagnosis: Bradycardia Status post pacemaker placement. Up and walking, no chest pain no shortness of breath no dizziness no chest heaviness. Objective - Vital Signs Vital signs: Vital Signs Temp 98 F 09/07/18 03:43 Pulse 62 09/07/18 03:43 Resp 18 09/07/18 03:43 BP 110/57 09/07/18 03:43 Pulse Ox 97 09/07/18 03:43 Intake & Output 09/06/18 09/07/18 09/07/18 18:59 06:59 18:59 Intake Total 250 100 Output Total 350 Balance -100 100 Weight 90.2 kg Intake: IV 50 Intake, IV Titration 200 Amount Sodium Chloride 0.9% 1, 200 000 ml @ 50 mls/hr IV . Q20H [facility] Rx#:[id number] Oral 100 Output: Urine 350 Other: Voiding Method Urinal Urinal # Voids 1 1 - Exam Constitutional: No acute distress, pleasant Eyes: Anicteric sclerae, moist conjunctiva ENMT: NC/AT,no erythema,no exudates Neck:Supple, No carotid bruits; Lungs: Clear to auscultation, Clear to percussion, Normal respiratory effort, no accessory muscle use Cardiovascular: Heart regular in rate and rhythm, No murmurs, gallops, or rubs no peripheral edema, pacemaker in place Abdominal: Soft Nontender, non distended, no guarding, no rebound or rigidity, Normoactive bowel sounds Skin: Normal temperature Extremities:No digital cyanosis No clubbing Psychiatric: Alert and oriented to person, place and time Neuro: Muscles Strength 5/5 in all 4 extremities Cranial nerves II-XII grossly intact. No focal sensory deficits - Labs CBC & Chem 7: 09/04/18 05:19 09/04/18 05:19 Labs: Abnormal Lab Results - Last 24 Hours (Table) 09/06/18 Range/Units 11:49 POC Glucose (mg/dL) 100 H (75-99) mg/dL Assessment and Plan Assessment: (1) Chest pain Current Visit: Yes Status: Acute Code(s): R07.9 - CHEST PAIN, UNSPECIFIED (2) New onset a-fib Narrative/Plan: * Echocardiogram showing ejection fraction of 30-35% with global hypokinesis and severely dilated left atrium * Patient transitioned from IV heparin to DOAC with Eliquis, beta aftab on hold secondary to severe bradycardia * Appreciate cardiology recommendations * (3) Bradycardia Narrative/Plan: * Status post pacemaker placement * Concern for underlying sick sinus syndrome (4) Ischemic cardiomyopathy Narrative/Plan: * EF of 30-35% * Clinically euvolemic without any acute CHF exacerbation * Beta blockers contraindicated due to severe bradycardia, initiated on BENITEZ inhibitor by cardiology (5) CAD (coronary artery disease) Narrative/Plan: * Continue with aspirin and statin therapy (6) HTN (hypertension) Narrative/Plan: * Blood pressure stable and controlled on current regimen (7) Hyperlipemia On statin Plan: CODE STATUS: DO NOT RESUSCITATE Discussed plan of care with; patient Prophylaxis on DOAC anticipated discharge: 1-2 days
--- NOTE | 2018-09-07 11:17 | P.DS ---
Providers Date of admission: 09/03/18 15:07 Expected date of discharge: 09/07/18 Attending physician: Kisha Mari DO Consults: 09/03/18 15:07 Consult Physician Urgent Consulting Provider: [facility] Consult Reason/Comments: Chest pain, new onset A. fib Do you want consulting provider notified?: Yes Primary care physician: Sundeep Hawley - Discharge Diagnosis(es) (1) Chest pain Current Visit: Yes Status: Acute (2) New onset a-fib Current Visit: Yes Status: Acute (3) Bradycardia Current Visit: Yes Status: Acute (4) Ischemic cardiomyopathy Current Visit: Yes Status: Acute (5) CAD (coronary artery disease) Current Visit: No Status: Chronic (6) HTN (hypertension) Current Visit: No Status: Chronic (7) Hyperlipemia Current Visit: No Status: Acute Hospital Course: The patient is a 87-year-old male with a past medical history of coronary artery disease with stenting, non-Q-wave [place], hyperlipidemia who presented to the ER and was admitted for chest pain. Workup ruled out ACS has is troponins were negative. The patient was noted to be in new onset A. fib with severe bradycardia, the patient was started on anticoagulation with IV heparin, his beta blockers were held. Echocardiogram confirmed ischemic cardiomyopathy with severely reduced EF 30-35%. Despite holding his beta blockers patient's bradycardia persisted, cardiology was consulted and the patient was deemed a candidate and subsequently had a biventricular dual pacemaker placed by Dr. Valdez. The patient had no further complications with this hospitalization and was discharged home in stable condition and instructed to follow-up with cardiology in 1 week. This discharge process took approximately 35 minutes Focused exam Cardiovascular: Irregularly irregular, no murmurs or gallops. Patient Condition at Discharge: Good Plan - Discharge Summary Discharge Rx Participant: Yes New Discharge Prescriptions: New Apixaban [Eliquis] 5 mg PO BID #60 tab Metoprolol Succinate (ER) [Toprol XL] 50 mg PO DAILY #30 tab.er.24h Lisinopril [Zestril] 10 mg PO DAILY #30 tab Continue Nitroglycerin Sl Tabs [Nitrostat] 0.4 mg SUBLINGUAL Q5M PRN PRN Reason: Chest Pain Aspirin EC [Ecotrin Low Dose] 81 mg PO DAILY Atorvastatin [Lipitor] 40 mg PO HS LORazepam [Ativan] 1 mg PO BID Gabapentin [Neurontin] 100 mg PO TID Discontinued Isosorbide Mononitrate [Imdur] 30 mg PO DAILY Metoprolol Tartrate [Lopressor] 25 mg PO DAILY #30 tab Discharge Medication List Nitroglycerin Sl Tabs [Nitrostat] 0.4 mg SUBLINGUAL Q5M PRN 12/14/13 [History] Aspirin EC [Ecotrin Low Dose] 81 mg PO DAILY 02/12/17 [History] Atorvastatin [Lipitor] 40 mg PO HS 03/15/17 [History] Gabapentin [Neurontin] 100 mg PO TID 09/03/18 [History] LORazepam [Ativan] 1 mg PO BID 09/03/18 [History] Apixaban [Eliquis] 5 mg PO BID #60 tab 09/07/18 [Rx] Lisinopril [Zestril] 10 mg PO DAILY #30 tab 09/07/18 [Rx] Metoprolol Succinate (ER) [Toprol XL] 50 mg PO DAILY #30 tab.er.24h 09/07/18 [Rx] Follow up Appointment(s)/Referral(s): Prakash Alvarado MD [STAFF PHYSICIAN] - 1 Week (Device clinic follow-up within [address] Alvarado/Jenn Jasso within 3 months) Sundeep Hawley MD [Primary Care Provider] - 1-2 days Activity/Diet/Wound Care/Special Instructions: Pt will get rx filled at [facility] at discharge but sent discharge medication list to [facility] for them to ensure that his list is correct through them.
[2018-09-07] MEDS: LISINOPRIL 10 MG TAB PO SCH (11:45)
--- NOTE | 2018-09-07 12:21 | P.PN ---
Subjective Mr. Dhaliwal is doing well. He has no more chest discomfort no dizziness lightheadedness or palpitations He is ambulating around in the hallway as well as in the room He has very minor discomfort over the pacemaker site There is minimal swelling minimal soakage no drainage No JVD Heart sounds are regular no murmurs Breath sounds are clear no rhonchi no crackles Abdomen soft Extremities are warm I explained the left arm precautions to be taken over the next month He also understands that he is to keep the dressing dry for about 5-7 days Chest x-ray does not show any pneumothorax Impression Persistent atrial fibrillation with a very slow ventricular response requiring permanent pacing Risk of 100% RV pacing with standard RV pacing Ischemic cardiopathy severe LV dysfunction Known coronary artery disease status post coronary stenting and a history of myocardial infarction in the past There for a biventricular pacemaker was implanted. LV lead positioned in the anterior lateral vein Device is functioning normally this morning. It was interrogated Chest x-ray is within normal limits Suggest Patient to go home from a chronic standpoint on apixaban 2.5 mg twice daily Continue baby aspirin He can't take Plavix The dose of metoprolol has been increased to 50 mg by mouth daily long-acting to take in the morning Lisinopril 10 mg in the evening Continue atorvastatin 40 mg daily Device clinic follow-up within 5 days Follow-up with Dr. Tinajero Objective - Vital Signs Vital signs: Vital Signs Temp 97.8 F 09/07/18 08:50 Pulse 62 09/07/18 08:50 Resp 18 09/07/18 11:26 BP 104/54 09/07/18 08:50 Pulse Ox 97 09/07/18 08:50 Intake & Output 09/06/18 09/07/18 09/07/18 18:59 06:59 18:59 Intake Total 250 100 Output Total 350 300 Balance -100 -200 Weight 90.2 kg Intake: IV 50 Intake, IV Titration 200 Amount Sodium Chloride 0.9% 1, 200 000 ml @ 50 mls/hr IV . Q20H [facility] Rx#:[id number] Oral 100 Output: Urine 350 300 Other: Voiding Method Urinal Urinal Urinal # Voids 1 1 1 # Bowel Movements 1 - Labs CBC & Chem 7: 09/04/18 05:19 09/04/18 05:19
[2018-09-07 12:25] VITALS: BP 114/54; PULSE 55; TEMP 97.3
[2018-09-07] MEDS ORDERED: MAGNESIUM HYDROXIDE 2,400 MG/10 ML CUP PO PRN (12:28)
== END 2018-09-07 12:59 | disposition home or self-care (01) | DRG 243 ==
LOC: EC 13:24 → 3SCARD 15:07 → 2SICU 16:28 → 3SCARD 09-04 14:40
PROVIDERS: ADMIT Internal Medicine; ATTEND Internal Medicine
PROC: 0JH607Z Insertion of Cardiac Resynchronization Pacemaker Pulse Generator into Chest Subcutaneous Tissue and Fascia, Open Approach (ICD-10-PCS; 2018-09-06)
PROC: 02H63JZ Insertion of Pacemaker Lead into Right Atrium, Percutaneous Approach (ICD-10-PCS; 2018-09-06)
PROC: 02H43JZ Insertion of Pacemaker Lead into Coronary Vein, Percutaneous Approach (ICD-10-PCS; 2018-09-06)
PROC: 0JH637Z Insertion of Cardiac Resynchronization Pacemaker Pulse Generator into Chest Subcutaneous Tissue and Fascia, Percutaneous Approach (ICD-10-PCS; principal; 2018-09-06 12:45)
DX: R00.1 Bradycardia, unspecified (principal); I50.22 Chronic systolic (congestive) heart failure; E78.5 Hyperlipidemia, unspecified; F41.9 Anxiety disorder, unspecified; I11.0 Hypertensive heart disease with heart failure; I25.10 Atherosclerotic heart disease of native coronary artery without angina pectoris; I25.2 Old myocardial infarction; I25.5 Ischemic cardiomyopathy; I48.1 Persistent atrial fibrillation; Z79.82 Long term (current) use of aspirin; Z79.899 Other long term (current) drug therapy; Z79.02 Long term (current) use of antithrombotics/antiplatelets; Z87.11 Personal history of peptic ulcer disease; Z87.891 Personal history of nicotine dependence; Z95.5 Presence of coronary angioplasty implant and graft; Z98.42 Cataract extraction status, left eye; Z98.41 Cataract extraction status, right eye
CPT/HCPCS: 33208; 36415; 71046; 80048; 80053; 80061; 83735; 84443; 84484; 85025; 85730; 93005; 93306; 96365; 99285

== ENCOUNTER 2018-09-28 15:52 | Observation (INO) | payer MEDICARE, BC ==
[2018-09-28] MEDS ORDERED: NALOXONE 0.4 MG/ML 1 ML VIAL IV PRN (16:15)
[2018-09-28] MEDS ORDERED: SODIUM CHLORIDE 0.9% 1,000 ML IV SCH (16:15)
--- NOTE | 2018-09-28 16:15 | ED ---
General Adult HPI - General Chief complaint: Syncope Stated complaint: near syncope Time Seen by Provider: 09/28/18 15:56 Source: patient, EMS, RN notes reviewed, old records reviewed (Review of reports an results from [facility].) Mode of arrival: EMS Limitations: no limitations - History of Present Illness Initial comments: Patient is a pleasant 87-year-old male presenting to the emergency Department as a transfer from [facility]. Patient started yesterday and again today with similar problems. Patient has had 2 near syncopal episodes per day. Patient feels fine at this time. Patient reportedly had a heart rate as low as 30 while on monitor. Patient recently had pacemaker placed a few weeks ago here with Dr. Alvarado. Patient does admit to having palpitations and lightheadedness with a near syncopal episodes. Patient denies chest pain or dyspnea. No confusion or weakness. - Related Data Home Medications Medication Instructions Recorded Confirmed Nitroglycerin Sl Tabs [Nitrostat] 0.4 mg SUBLINGUAL Q5M PRN 12/14/13 09/03/18 Aspirin EC [Ecotrin Low Dose] 81 mg PO DAILY 02/12/17 09/03/18 Atorvastatin [Lipitor] 40 mg PO HS 03/15/17 09/03/18 Gabapentin [Neurontin] 100 mg PO TID 09/03/18 09/03/18 LORazepam [Ativan] 1 mg PO BID 09/03/18 09/03/18 Previous Rx's Medication Instructions Recorded Apixaban [Eliquis] 5 mg PO BID #60 tab 09/07/18 Lisinopril [Zestril] 10 mg PO DAILY #30 tab 09/07/18 Metoprolol Succinate (ER) [Toprol 50 mg PO DAILY #30 tab.er.24h 09/07/18 XL] Allergies Allergy/AdvReac Type Severity Reaction Status Date / Time clopidogrel [From Plavix] Allergy Unknown Verified 09/03/18 14:39 procaine [Procaine] Allergy Rash/Hives Verified 09/03/18 14:39 procaine HCl [From Novocain] Allergy Rash/Hives Verified 09/03/18 14:39 Review of Systems ROS Statement: Those systems with pertinent positive or pertinent negative responses have been documented in the HPI. ROS Other: All systems not noted in ROS Statement are negative. Constitutional: Denies: fever Eyes: Denies: eye pain ENT: Denies: ear pain Respiratory: Denies: cough, dyspnea Cardiovascular: Reports: palpitations. Denies: chest pain Endocrine: Denies: fatigue Gastrointestinal: Denies: abdominal pain Genitourinary: Denies: dysuria Musculoskeletal: Denies: back pain Skin: Denies: rash Neurological: Denies: headache, weakness, confusion Past Medical History Past Medical History: Coronary Artery Disease (CAD), Chest Pain / Angina, Heart Failure, Hyperlipidemia, Hypertension, Myocardial Infarction ([place]), Osteoarthritis (OA) Additional Past Medical History / Comment(s): CHF, ANGINA, Stents x 4, DJD, antral ulcer Last Myocardial Infarction Date:: 12/14/13 History of Any Multi-Drug Resistant Organisms: None Reported Past Surgical History: Heart Catheterization With Stent, Hernia Repair, Orthopedic Surgery Additional Past Surgical History / Comment(s): STENTS X4, Left hand surgery, jared cataract, EGD Past Anesthesia/Blood Transfusion Reactions: No Reported Reaction Date of Last Stent Placement:: 12/14/2013 Past Psychological History: Anxiety Smoking Status: Former smoker Past Alcohol Use History: None Reported Past Drug Use History: None Reported - Past Family History Mother History Unknown: Yes Father Additional Family Medical History / Comment(s): typhoid fever; otherwise unknown hx of father or mother; father was in concentration camp in [facility]. General Exam Limitations: no limitations General appearance: alert, in no apparent distress Head exam: Present: atraumatic Eye exam: Present: normal appearance, PERRL, EOMI. Absent: nystagmus ENT exam: Present: normal oropharynx Neck exam: Present: normal inspection Respiratory exam: Present: normal lung sounds bilaterally Cardiovascular Exam: Present: regular rate, irregular rhythm Expanded Peripheral pulses: 2+: Radial (R), Radial (L), Dorsalis Pedis (R), Dorsalis Pedis (L) GI/Abdominal exam: Present: soft. Absent: tenderness Extremities exam: Present: normal inspection. Absent: pedal edema, joint swelling, calf tenderness Neurological exam: Present: alert, oriented X3, CN II-XII intact. Absent: motor sensory deficit Expanded Neurological exam: Present: protecting the airway Patient oriented to: Present: person, place, time Speech: Present: fluid speech Cranial nerves: EOM's Intact: Normal Motor strength exam: RUE: 5, LUE: 5, RLE: 5, LLE: 5 Eye Response: (4) open spontaneously Motor Response: (6) obeys commands Verbal Response: (5) oriented Psychiatric exam: Present: normal affect, normal mood Skin exam: Present: normal color Course Vital Signs 09/28/18 15:54 Temperature 97.3 F L Pulse Rate 55 L Respiratory 16 Rate Blood Pressure 143/71 O2 Sat by Pulse 98 Oximetry Medical Decision Making - Medical Decision Making Patient updated on plan. Case was discussed with Dr. Alvarado, covering for Dr. Hawley, who will admit. Disposition Clinical Impression: Near syncope Disposition: ADMITTED IP TO THIS HOSP Is patient prescribed a controlled substance at d/c from ED?: No Referrals: Sundeep Hawley MD [Primary Care Provider] - 1-2 days Decision Time: 16:15
[2018-09-28 17:14] VITALS: RESP 18; BMI 29.8
[2018-09-28] MEDS ORDERED: NITROGLYCERIN SL TABS 0.4 MG TAB SUBLINGUAL PRN (17:56)
[2018-09-28] MEDS ORDERED: GABAPENTIN 100 MG CAP PO SCH (21:00)
[2018-09-28] MEDS ORDERED: ATORVASTATIN 40 MG TAB PO SCH (21:00)
[2018-09-28] MEDS: LORazepam 1 MG TAB PO SCH (21:22)
[2018-09-28] MEDS: APIXABAN 5 MG TAB PO SCH (21:22)
[2018-09-28 22:49] LABS: Magnesium 2.2 mg/dL (1.6-2.3); Potassium 4.5 mmol/L (3.5-5.1)
[2018-09-29 05:55] LABS: HCT 46.2 % (39.0-53.0); HGB 14.7 gm/dL (13.0-17.5); MCH 28.6 pg (25.0-35.0); MCHC 31.8 g/dL (31.0-37.0); MCV 89.9 fL (80.0-100.0); Mean Platelet Volume 7.7; Platelet Count 177 k/uL (150-450); RBC 5.14 m/uL (4.30-5.90); RDW 15.7 % (11.5-15.5); WBC 6.8 k/uL (3.8-10.6)
[2018-09-29 06:07] LABS: Albumin 3.3 g/dL (3.5-5.0); Calcium 9.1 mg/dL (8.4-10.2); Potassium 4.4 mmol/L (3.5-5.1); Total Protein 5.8 g/dL (6.3-8.2)
[2018-09-29 06:49] LABS: Basophils # (M) 0.07 k/uL (0-0.2); Eosinophils # (M) 0.54 k/uL (0-0.7); Monocytes # (M) 0.88 k/uL (0-1.0); Neutrophils % (M) 50 %; Nucleated Red Blood Cells 0 /100 WBC (0-0); Total Cells Counted 100
[2018-09-29] MEDS ORDERED: LIDOCAINE 1% INJ 10MG/ML (20 ML MDV) SQ ONE (08:39)
[2018-09-29] MEDS: APIXABAN 5 MG TAB PO SCH (08:59)
[2018-09-29] MEDS ORDERED: LISINOPRIL 10 MG TAB PO SCH (09:00)
[2018-09-29] MEDS ORDERED: METOPROLOL SUCCINATE (ER) 25 MG TAB.ER.24H PO SCH (09:00)
[2018-09-29] MEDS ORDERED: GABAPENTIN 100 MG CAP PO SCH (09:00)
[2018-09-29] MEDS ORDERED: METOPROLOL SUCCINATE (ER) 50 MG TAB.ER.24H PO SCH (09:00)
[2018-09-29] MEDS: LORazepam 1 MG TAB PO SCH (09:03)
--- NOTE | 2018-09-29 09:25 | P.CRDCN ---
History of Present Illness History of present illness: This is Dr. Valdez dictating a consult on this patient The patient was interviewed and examined by me IMPRESSION / ASSESSMENT: Recurrent dizzy spells and presyncope associated with drug use. 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 Tinajero within a week or 2 While he does have ischemic adenopathy he also has episodes of hypotension related to low dose of these medications need for treatment of cardio myopathy. I'm stopping lisinopril on account of symptomatic hypotension HPI Recurrent dizzy spells lightheadedness 30-60 minutes after taking his morning medications No chest pain no complete loss of consciousness no falls and no trauma According to the emergency room note he had 2 syncopal spells but the patient denies that I received a call from the outside hospital stating that his heart rate was low but I looked at the EKG and it was not At the outside hospital emergency room, they had Suspected pacemaker malfunction However I reviewed the ECG which was faxed to make and there was no pacemaker malfunction noted. It was an inaccurate interpretation of the ECG He has a biventricular pacemaker device with His bundle pacing which is functioning normally on the 12-lead EKG ROS: No fever chills or rigors, no cough, phlegm or expectoration, no nausea, vomiting or diarrhea, no hematuria, dysuria, no musculoskeletal complaints, no strokes or seizures, no skin lesions. EXAMINATION: Pulse rate 60, blood pressure 140/75 mmHg 128/68 mmHg afebrile Breath sounds are clear no rhonchi no crackles Heart sounds S1 and S2 are normal no murmurs or gallops. Abdomen soft nontender Adnexa days are warm no edema Patient is lying flat in bed REVIEW OF LABS, ECG & MEDICAL DATA Home medications reviewed and include aspirin atorvastatin Neurontin Ativan apixaban lisinopril and metoprolol ALLERGIES to Plavix Past history includes coronary artery disease ischemic coronary myopathy history of myocardial infarction status post coronary stenting several months back hence on aspirin. History of atrial fibrillation and therefore on apixaban Past Medical History Past Medical History: Coronary Artery Disease (CAD), Chest Pain / Angina, Heart Failure, Hyperlipidemia, Hypertension, Myocardial Infarction ([place]), Osteoarthritis (OA) Additional Past Medical History / Comment(s): CHF, ANGINA, Stents x 4, DJD, antral ulcer Last Myocardial Infarction Date:: 12/14/13 History of Any Multi-Drug Resistant Organisms: None Reported Past Surgical History: Heart Catheterization With Stent, Hernia Repair, Orthopedic Surgery Additional Past Surgical History / Comment(s): STENTS X4, Left hand surgery, jared cataract, EGD, PPM August Past Anesthesia/Blood Transfusion Reactions: No Reported Reaction Date of Last Stent Placement:: 12/14/2013 Past Psychological History: Anxiety Additional Psychological History / Comment(s): Pt states he resides with his spouse of 67yrs. He uses no assistive device. He drives. Smoking Status: Former smoker Past Alcohol Use History: None Reported Additional Past Alcohol Use History / Comment(s): Pt started smoking in 1943 and quit in 1980 Past Drug Use History: None Reported - Past Family History Mother History Unknown: Yes Father Additional Family Medical History / Comment(s): typhoid fever; otherwise unknown hx of father or mother; father was in concentration camp in [facility]. Medications and Allergies Home Medications Medication Instructions Recorded Confirmed Type Nitroglycerin Sl Tabs [Nitrostat] 0.4 mg SUBLINGUAL Q5M PRN 12/14/13 09/28/18 History Atorvastatin [Lipitor] 40 mg PO HS 03/15/17 09/28/18 History LORazepam [Ativan] 1 mg PO BID 09/03/18 09/28/18 History Apixaban [Eliquis] 5 mg PO BID #60 tab 09/07/18 09/28/18 Rx Lisinopril [Zestril] 10 mg PO DAILY #30 tab 09/07/18 09/28/18 Rx Metoprolol Succinate (ER) [Toprol 50 mg PO DAILY #30 tab.er.24h 09/07/18 09/28/18 Rx XL] Gabapentin [Neurontin] 100 mg PO DAILY 09/28/18 09/28/18 History Gabapentin [Neurontin] 200 mg PO HS 09/28/18 09/28/18 History Allergies Allergy/AdvReac Type Severity Reaction Status Date / Time clopidogrel [From Plavix] Allergy Unknown Verified 09/28/18 16:42 procaine [Procaine] Allergy Rash/Hives Verified 09/28/18 16:42 procaine HCl [From Novocain] Allergy Rash/Hives Verified 09/28/18 16:42 Physical Exam Vitals: Vital Signs Temp Pulse Pulse Resp BP BP Pulse Ox 09/29/18 08:00 60 18 09/29/18 07:12 97.6 F 60 18 140/75 97 09/29/18 04:00 59 L 18 09/29/18 03:55 98.3 F 59 L 18 128/68 98 09/28/18 23:55 97.5 F L 73 18 131/69 95 09/28/18 23:08 60 18 09/28/18 20:00 97.8 F 60 18 130/58 97 09/28/18 17:05 98.1 F 60 18 150/71 98 09/28/18 16:30 63 13 142/73 98 09/28/18 15:54 97.3 F L 55 L 16 143/71 98 Intake and Output 09/28/18 09/29/18 09/29/18 22:59 06:59 14:59 Intake Total 360 20 Balance 360 20 Intake: Intake, IV Titration 20 Amount Sodium Chloride 0.9% 1, 20 000 ml @ 20 mls/hr IV . Q24H [facility] Rx#:[id number] Oral 360 Other: Voiding Method Toilet # Voids 1 Weight 91.626 kg Results 09/29/18 05:23 09/29/18 05:23 Cardiac Enzymes 09/28/18 09/28/18 09/29/18 Range/Units 17:41 22:34 05:23 AST 16 L (17-59) U/L Troponin I <0.012 <0.012 (0.000-0.034) ng/mL 09/29/18 Range/Units 05:23 AST (17-59) U/L Troponin I 0.016 (0.000-0.034) ng/mL CBC 09/29/18 Range/Units 05:23 WBC 6.8 (3.8-10.6) k/uL RBC 5.14 (4.30-5.90) m/uL Hgb 14.7 (13.0-17.5) gm/dL Hct 46.2 (39.0-53.0) % Plt Count 177 (150-450) k/uL Comprehensive Metabolic Panel 09/28/18 09/29/18 Range/Units 22:34 05:23 Sodium 140 (137-145) mmol/L Potassium 4.5 4.4 (3.5-5.1) mmol/L Chloride 108 H (98-107) mmol/L Carbon Dioxide 25 (22-30) mmol/L BUN 28 H (9-20) mg/dL Creatinine 1.41 H (0.66-1.25) mg/dL Glucose 85 (74-99) mg/dL Calcium 9.1 (8.4-10.2) mg/dL AST 16 L (17-59) U/L ALT 21 (21-72) U/L Alkaline Phosphatase 86 (38-126) U/L Total Protein 5.8 L (6.3-8.2) g/dL Albumin 3.3 L (3.5-5.0) g/dL Current Medications Generic Name Dose Route Start Last Admin Trade Name Freq PRN Reason Stop Dose Admin Apixaban 5 mg 09/28/18 21:00 09/29/18 08:59 Eliquis PO 5 mg BID АНДРЕЙ Administration Atorvastatin Calcium 40 mg 09/28/18 21:00 09/28/18 21:22 Lipitor PO 40 mg HS АНДРЕЙ Administration Gabapentin 200 mg 09/28/18 21:00 09/28/18 21:22 Neurontin PO 200 mg HS АНДРЕЙ Administration Gabapentin 100 mg 09/29/18 09:00 09/29/18 09:03 Neurontin PO Not Given DAILY АНДРЕЙ Sodium Chloride 1,000 mls @ 20 mls/hr 09/28/18 16:15 09/28/18 17:43 Saline 0.9% IV 20 mls/hr .Q24H АНДРЕЙ Administration Lorazepam 1 mg 09/28/18 21:00 09/29/18 09:03 Ativan PO Not Given BID АНДРЕЙ Metoprolol Succinate 25 mg 09/29/18 09:00 09/29/18 09:03 Toprol Xl PO Not Given DAILY [facility] Naloxone HCl 0.2 mg 09/28/18 16:15 Narcan IV Q2M PRN Opioid Reversal Nitroglycerin 0.4 mg 09/28/18 17:56 Nitrostat SUBLINGUAL Q5M PRN Chest Pain Intake and Output 09/28/18 09/29/18 09/29/18 22:59 06:59 14:59 Intake Total 360 20 Balance 360 20 Intake: Intake, IV Titration 20 Amount Sodium Chloride 0.9% 1, 20 000 ml @ 20 mls/hr IV . Q24H [facility] Rx#:[id number] Oral 360 Other: Voiding Method Toilet # Voids 1 Weight 91.626 kg 09/29/18 05:23 09/29/18 05:23
[2018-09-29 11:33] VITALS: BP 139/72; PULSE 61; TEMP 97.5
--- NOTE | 2018-09-29 12:02 | P.HPIM ---
History of Present Illness Combined H&P and discharge summary Discharge diagnoses: Syncope, related to hypotension Hypotensive episodes related to his blood pressure medication which were adjusted History of coronary artery disease History of congestive heart failure status post is maker Hyperlipidemia Hypertension Chronic kidney disease, stage III Review of systems CONSTITUTIONAL: No fever, no malaise, no fatigue. HEENT: No recent visual problems or hearing problems. Denied any sore throat. CARDIOVASCULAR: No orthopnea, PND, no palpitations, no syncope. PULMONARY: No shortness of breath, no cough, no hemoptysis. GASTROINTESTINAL: No diarrhea, no nausea, no vomiting, no abdominal pain. Normoactive bowel sounds. NEUROLOGICAL: No headaches, no weakness, no numbness. HEMATOLOGICAL: Denies any bleeding or petechiae. GENITOURINARY: Denies any burning micturition, frequency, or urgency. MUSCULOSKELETAL/RHEUMATOLOGICAL: Denies any joint pain, swelling, or any muscle pain. ENDOCRINE: Denies any polyuria or polydipsia. Hospital course She is a pleasant 87 she's old female with past medical history of coronary artery disease, congestive heart failure status post pacemaker, hyperlipidemia, hypertension. Presents with syncope related to hypotension episodes, mostly secondary to his blood pressure medication. As per ED patient has an episode of bradycardia in the 30s, however his heart rate has been stable for more than 24 hours and 60. Still Vitas looks stable. looks unremarkable. Creatinine 1.4, baseline creatinine 1.2-1.8. Serial troponins were negative and liver enzymes were prepped elevated. Patient has been evaluated by cardiology team. His lisinopril and lower the dose of metoprolol. We'll continue with the Eliquis, aspirin and atorvastatin. EKG did not shows normal functioning of the biventricular pacemaker as per resident manager. Patient returned to his baseline. And the time of discharge patient denies chest pain, denies dyspnea, denies abdominal pain or nausea vomiting. No change in urine or bowel habits. No fever Patient was cleared by cardiology team for discharge Problems and management plan were discussed with the patient and he verbalized understanding and acceptance Patient was found stable and can be discharged home however he needs follow-up as an outpatient. Patient instructed to follow up with his PCP and resident manager within 1 week and he agrees. Physical exam Gen: patient is a AAOx3, no distress CVS: S1-S2, RRR, no murmur Lungs: B/L CTA, no wheezing Abdomen: soft, no distention, no tenderness, positive bowel sounds Extremity: no leg edema or induration Time spent more than 35 minutes Review of Systems CONSTITUTIONAL: No fever, no malaise, no fatigue. HEENT: No recent visual problems or hearing problems. Denied any sore throat. CARDIOVASCULAR: No orthopnea, PND, no palpitations, no syncope. PULMONARY: No shortness of breath, no cough, no hemoptysis. GASTROINTESTINAL: No diarrhea, no nausea, no vomiting, no abdominal pain. Normoactive bowel sounds. NEUROLOGICAL: No headaches, no weakness, no numbness. HEMATOLOGICAL: Denies any bleeding or petechiae. GENITOURINARY: Denies any burning micturition, frequency, or urgency. MUSCULOSKELETAL/RHEUMATOLOGICAL: Denies any joint pain, swelling, or any muscle pain. ENDOCRINE: Denies any polyuria or polydipsia. Past Medical History Past Medical History: Coronary Artery Disease (CAD), Chest Pain / Angina, Heart Failure, Hyperlipidemia, Hypertension, Myocardial Infarction ([place]), Osteoarthritis (OA) Additional Past Medical History / Comment(s): CHF, ANGINA, Stents x 4, DJD, antral ulcer Last Myocardial Infarction Date:: 12/14/13 History of Any Multi-Drug Resistant Organisms: None Reported Past Surgical History: Heart Catheterization With Stent, Hernia Repair, Orthopedic Surgery Additional Past Surgical History / Comment(s): STENTS X4, Left hand surgery, jared cataract, EGD, PPM August Past Anesthesia/Blood Transfusion Reactions: No Reported Reaction Date of Last Stent Placement:: 12/14/2013 Past Psychological History: Anxiety Additional Psychological History / Comment(s): Pt states he resides with his spouse of 67yrs. He uses no assistive device. He drives. Smoking Status: Former smoker Past Alcohol Use History: None Reported Additional Past Alcohol Use History / Comment(s): Pt started smoking in 1943 and quit in 1980 Past Drug Use History: None Reported - Past Family History Mother History Unknown: Yes Father Additional Family Medical History / Comment(s): typhoid fever; otherwise unknown hx of father or mother; father was in concentration camp in [facility]. Medications and Allergies Home Medications Medication Instructions Recorded Confirmed Type Nitroglycerin Sl Tabs [Nitrostat] 0.4 mg SUBLINGUAL Q5M PRN 12/14/13 09/28/18 History Atorvastatin [Lipitor] 40 mg PO HS 03/15/17 09/28/18 History LORazepam [Ativan] 1 mg PO BID 09/03/18 09/28/18 History Apixaban [Eliquis] 5 mg PO BID #60 tab 09/07/18 09/28/18 Rx Lisinopril [Zestril] 10 mg PO DAILY #30 tab 09/07/18 09/28/18 Rx Metoprolol Succinate (ER) [Toprol 50 mg PO DAILY #30 tab.er.24h 09/07/18 09/28/18 Rx XL] Gabapentin [Neurontin] 100 mg PO DAILY 09/28/18 09/28/18 History Gabapentin [Neurontin] 200 mg PO HS 09/28/18 09/28/18 History Allergies Allergy/AdvReac Type Severity Reaction Status Date / Time clopidogrel [From Plavix] Allergy Unknown Verified 09/28/18 16:42 procaine [Procaine] Allergy Rash/Hives Verified 09/28/18 16:42 procaine HCl [From Novocain] Allergy Rash/Hives Verified 09/28/18 16:42 Physical Exam Vitals: Vital Signs Temp Pulse Pulse Resp BP BP Pulse Ox 09/29/18 11:32 97.5 F L 61 18 139/72 98 09/29/18 08:00 60 18 09/29/18 07:12 97.6 F 60 18 140/75 97 09/29/18 04:00 59 L 18 09/29/18 03:55 98.3 F 59 L 18 128/68 98 09/28/18 23:55 97.5 F L 73 18 131/69 95 09/28/18 23:08 60 18 09/28/18 20:00 97.8 F 60 18 130/58 97 09/28/18 17:05 98.1 F 60 18 150/71 98 09/28/18 16:30 63 13 142/73 98 09/28/18 15:54 97.3 F L 55 L 16 143/71 98 Intake and Output 09/28/18 09/29/18 09/29/18 22:59 06:59 14:59 Intake Total 360 20 240 Balance 360 20 240 Intake: Intake, IV Titration 20 Amount Sodium Chloride 0.9% 1, 20 000 ml @ 20 mls/hr IV . Q24H [facility] Rx#:[id number] Oral 360 240 Other: Voiding Method Toilet # Voids 1 Weight 91.626 kg GENERAL: The patient is alert and oriented x3, not in any acute distress. Well developed, well nourished. HEENT: Pupils are round and equally reacting to light. EOMI. No scleral icterus. No conjunctival pallor. Normocephalic, atraumatic. No pharyngeal erythema. No thyromegaly. CARDIOVASCULAR: S1 and S2 present. No murmurs, rubs, or gallops. PULMONARY: Chest is clear to auscultation, no wheezing or crackles. ABDOMEN: Soft, nontender, nondistended, normoactive bowel sounds. No palpable organomegaly. MUSCULOSKELETAL: No joint swelling or deformity. EXTREMITIES: No cyanosis, clubbing, or pedal edema. NEUROLOGICAL: Gross neurological examination did not reveal any focal deficits. SKIN: No rashes. Results CBC & Chem 7: 09/29/18 05:23 09/29/18 05:23 Labs: Abnormal Lab Results - Last 24 Hours (Table) 09/29/18 09/29/18 Range/Units 05:23 05:23 RDW 15.7 H (11.5-15.5) % Chloride 108 H (98-107) mmol/L BUN 28 H (9-20) mg/dL Creatinine 1.41 H (0.66-1.25) mg/dL AST 16 L (17-59) U/L Total Protein 5.8 L (6.3-8.2) g/dL Albumin 3.3 L (3.5-5.0) g/dL Thrombosis Risk Factor Assmnt - Choose All That Apply Any of the Below Risk Factors Present?: Yes Each Factor Represents 1 point: Obesity (BMI >25) Other Risk Factors: Yes Each Risk Factor Represents 3 Points: Age 75 years or older Thrombosis Risk Factor Assessment Total Risk Factor Score: 4 Thrombosis Risk Factor Assessment Level: Moderate Risk
== END 2018-09-29 13:17 | disposition home or self-care (01) ==
LOC: EC 15:52 → 3SCARD 16:15 → 1SOBS 23:32
PROVIDERS: ADMIT Internal Medicine; ATTEND Internal Medicine
DX: I95.9 Hypotension, unspecified (principal); I25.5 Ischemic cardiomyopathy; T46.5X5A Adverse effect of other antihypertensive drugs, initial encounter; I48.91 Unspecified atrial fibrillation; I13.0 Hypertensive heart and chronic kidney disease with heart failure and stage 1 through stage 4 chronic kidney disease, or unspecified chronic kidney disease; I50.9 Heart failure, unspecified; I25.10 Atherosclerotic heart disease of native coronary artery without angina pectoris; N18.3 Chronic kidney disease, stage 3 (moderate); F41.9 Anxiety disorder, unspecified; E78.5 Hyperlipidemia, unspecified; I44.30 Unspecified atrioventricular block; R00.1 Bradycardia, unspecified; R94.5 Abnormal results of liver function studies; E66.9 Obesity, unspecified; Z68.32 Body mass index [BMI] 32.0-32.9, adult; M19.90 Unspecified osteoarthritis, unspecified site; Z79.82 Long term (current) use of aspirin; Z79.01 Long term (current) use of anticoagulants; Z79.899 Other long term (current) drug therapy; Z88.4 Allergy status to anesthetic agent; Z88.8 Allergy status to other drugs, medicaments and biological substances; I25.2 Old myocardial infarction; Z87.11 Personal history of peptic ulcer disease; Z95.5 Presence of coronary angioplasty implant and graft; Z87.891 Personal history of nicotine dependence; Z98.42 Cataract extraction status, left eye; Z98.41 Cataract extraction status, right eye; Z95.0 Presence of cardiac pacemaker; Z83.1 Family history of other infectious and parasitic diseases
CPT/HCPCS: 96365; 99285; 93005; 80053; 83735; 84132; 84484 ×2; 85025; G0378 ×2; J0690; J2001